=== PATIENT | female | born 1955 | race Caucasian/White ===

== ENCOUNTER 2017-05-28 17:01 | Inpatient (IN) | payer OTHER, MEDICARE ==
[~2017-05-28] VITALS: Ht 154.9 cm; Wt 53.5 kg
[~2017-05-28 17:01] MED LIST: ADAL40PEN INJ; ASPI81CH PO; ASPI81EC PO; BETA.05TO TOP; COLE625; CYCL10; CYCL10 PO; DOCSEN PO; DULO30; DULO30 PO; DULO60 PO; Duragesic TOP; ERGO50000; ERGO50000 PO; FENT25TP TOP; FENT50TP; FOLI400; HUMERA; HYDACE10B PO; HYDACE5 PO; HYDACE5325 PO; HYDACE7.5; HYOMAX; HYOS.125 SL; IBUP800; K-Dur20 MEQ PO; LORA.5 PO; MESA250ER; MESA250ER PO; METCAR500; METCAR500 PO; METCAR750 PO; MUPI2TO TOP; Norco 10-325 T1 EACH PO; Norco 5-325 Ta1 EACH PO; ONDA4; ONDA4 PO; ONDA4ODT MM; ONDA8ODT; OXYACE5T PO; POTCHL10ER PO; POTCIT10; PRED10 PO; PRED20 PO; PROM25; PROM25 PO; PROM25S PR; PROM50S; Phenergan25 M1; Prednisone20 MG PO; Protonix40 MG PO; RELISTOR12 MG/0.6 SQ; REMICADE; VENL150ER PO; VICODIN 5-3001 EACH PO; Zofran Odt4 MG PO; Zofran4 MG PO; Zofran8 MG PO; [UNRECOGNIZED DRUG - OTHER]; [UNRECOGNIZED DRUG - REMARK]
[2017-05-28] MEDS ORDERED: LATANOPROST2.5 ML LEFTEYE (17:31)
[2017-05-28] MEDS ORDERED: Hydrocodone-Ap1 EA20 PO (17:32)
[2017-05-28] MEDS ORDERED: VENL150ER PO (17:32)
[2017-05-28 18:11] LABS: BASOPHILS ABSOLUTE AUTO 0.04 K/mm3 (0.00-0.23); BASOPHILS PERCENT AUTO 1 % (0-2); Hematocrit 34.7 % (33.0-51.0); Hemoglobin 10.9 g/dL (11.5-16.0); LYMPHOCYTES ABSOLUTE AUTO 0.95 K/mm3 (0.84-5.20); LYMPHOCYTES PERCENT AUTO 11 % (21-46); MONOCYTES ABSOLUTE AUTO 0.85 K/mm3 (0.16-1.47); MONOCYTES PERCENT AUTO 10 % (4-13); Mean Corpuscular HGB 24.8 pg (26.0-34.0); Mean Corpuscular HGB Conc 31.4 g/dL (31.5-36.5); Mean Corpuscular Volume 79 fL (80-100); Mean Platelet Volume 10.6 fL (9.1-12.4); Platelet Count 374 K/mm3 (150-400); RDW Coefficient Variation 17.2 % (11.7-14.2); RDW Standard Deviation 48.6 fL (35.1-46.3); White Blood Cell Count 8.32 K/mm3 (4.00-11.30)
[2017-05-28 18:19] LABS: EOSINOPHILS ABSOLUTE AUTO 0.01 K/mm3 (0.00-0.68); EOSINOPHILS PERCENT AUTO 0 % (0-6); IMMATURE GRAN ABSOLUTE AUTO 0.06 K/mm3 (0.00-0.10); IMMATURE GRAN PERCENT AUTO 1 % (0-1); NEUTROPHILS ABSOLUTE AUTO 6.41 K/mm3 (1.96-9.15); NEUTROPHILS PERCENT AUTO 77 % (41-73)
[2017-05-28 18:38] LABS: Alanine Aminotransfer (ALT/SGP 16 U/L (12-78); Albumin, Blood 2.3 g/dL (3.4-5.0); Albumin/Globulin Ratio 0.6 (0.8-1.8); Alk Phos 157 U/L (50-136); Anion Gap 12 mmol/L (6-16); Aspartate Aminotrans (AST/SGOT 17 U/L (12-37); Bilirubin, Total 0.6 mg/dL (0.1-1.0); Blood Urea Nitrogen 15 mg/dL (8-24); Bun/Creatinine Ratio 19.6 (12.0-20.0); CO2, Blood 23 mmol/L (21-32); Calcium, Blood 7.4 mg/dL (8.5-10.1); Chloride, Blood 99 mmol/L (98-108); Creatinine, Blood 0.76 mg/dL (0.40-1.00); Globulin, Blood 3.9 g/dL (2.2-4.0); Glomerular Filtration Rate >60 (60-); Glucose, Blood 98 mg/dL (70-99); Potassium, Blood 2.4 mmol/L (3.5-5.5); Sodium, Blood 134 mmol/L (136-145); Total Protein, Blood 6.2 g/dL (6.4-8.2)
[2017-05-29 06:10] LABS: Source, Urine Clean Catch
[2017-05-29 06:14] LABS: Bilirubin, Urine Neg (Neg); Blood, Urine 1+ (Neg); Glucose Qualitative, Urine Neg (Neg); Ketones, Urine Neg (Neg); Leukocyte Esterase, Urine 1+ (Neg); Nitrite, Urine Neg (Neg); Protein, Urine 2+ (Neg); Specific Gravity, Urine 1.015 (1.003-1.022); Urobilinogen, Urine NORM (Normal)
[2017-05-29 06:23] LABS: Appearance, Urine Hazy (Clear); Color, Urine Yellow (P-Yellow)
[2017-05-29 06:25] LABS: Amorphous Light (0-Heavy); Bacteria Few /hpf; Red Blood Cells, Urine 0-2 /hpf (0-2); Squamous Epithelial Cells Mod /hpf (Few)
[2017-05-29 07:09] LABS: Hematocrit 30.7 % (33.0-51.0); Hemoglobin 9.7 g/dL (11.5-16.0); Mean Corpuscular HGB 25.4 pg (26.0-34.0); Mean Corpuscular HGB Conc 31.6 g/dL (31.5-36.5); Mean Corpuscular Volume 80 fL (80-100); Mean Platelet Volume 10.2 fL (9.1-12.4); Platelet Count 323 K/mm3 (150-400); RDW Coefficient Variation 17.5 % (11.7-14.2); RDW Standard Deviation 50.2 fL (35.1-46.3); Red Blood Cell Count 3.82 M/mm3 (3.80-5.20); White Blood Cell Count 6.06 K/mm3 (4.00-11.30)
[2017-05-29 07:27] LABS: Anion Gap 9 mmol/L (6-16); Blood Urea Nitrogen 16 mg/dL (8-24); Bun/Creatinine Ratio 17.8 (12.0-20.0); CO2, Blood 23 mmol/L (21-32); Chloride, Blood 105 mmol/L (98-108); Glomerular Filtration Rate >60 (60-); Glucose, Blood 95 mg/dL (70-99); Phosphorus, Blood 2.1 mg/dL (2.5-4.9); Potassium, Blood 3.2 mmol/L (3.5-5.5); Sodium, Blood 137 mmol/L (136-145)
[2017-05-29 07:32] LABS: BAND PERCENT MAN 33 % (0-8); BASOPHILS PERCENT MAN 0 % (0-2); EOSINOPHILS ABSOLUTE MAN 0.12 K/mm3 (0.00-0.68); EOSINOPHILS PERCENT MAN 2 % (0-6); LYMPHOCYTES PERCENT MAN 10 % (21-46); MONOCYTES ABSOLUTE MAN 0.42 K/mm3 (0.16-1.47); MONOCYTES PERCENT MAN 7 % (4-13); SEG NEUTROPHILS PERCENT MAN 48 % (41-73); TOTAL CELLS COUNTED 100
[2017-05-29 08:41] LABS: Calcium, Blood 6.4 mg/dL (8.5-10.1)
[2017-05-31 05:58] LABS: Magnesium, Blood 1.8 mg/dL (1.6-2.4)
[2017-05-31 05:59] LABS: Anion Gap 10 mmol/L (6-16); Blood Urea Nitrogen 7 mg/dL (8-24); Bun/Creatinine Ratio 11.1 (12.0-20.0); CO2, Blood 18 mmol/L (21-32); Calcium, Blood 7.2 mg/dL (8.5-10.1); Chloride, Blood 115 mmol/L (98-108); Creatinine, Blood 0.63 mg/dL (0.40-1.00); Glomerular Filtration Rate >60 (60-); Glucose, Blood 120 mg/dL (70-99); Phosphorus, Blood 1.8 mg/dL (2.5-4.9); Potassium, Blood 4.8 mmol/L (3.5-5.5); Sodium, Blood 143 mmol/L (136-145); Triglycerides 73 mg/dL (30-160)
[2017-06-01 05:50] LABS: Anion Gap 7 mmol/L (6-16); Blood Urea Nitrogen 10 mg/dL (8-24); Bun/Creatinine Ratio 12.9 (12.0-20.0); CO2, Blood 24 mmol/L (21-32); Calcium, Blood 7.8 mg/dL (8.5-10.1); Chloride, Blood 111 mmol/L (98-108); Creatinine, Blood 0.78 mg/dL (0.40-1.00); Glomerular Filtration Rate >60 (60-); Glucose, Blood 163 mg/dL (70-99); Magnesium, Blood 2.2 mg/dL (1.6-2.4); Phosphorus, Blood 1.8 mg/dL (2.5-4.9); Potassium, Blood 3.6 mmol/L (3.5-5.5); Sodium, Blood 142 mmol/L (136-145)
[2017-06-02 05:16] LABS: Anion Gap 7 mmol/L (6-16); Blood Urea Nitrogen 18 mg/dL (8-24); Bun/Creatinine Ratio 26.4 (12.0-20.0); CO2, Blood 26 mmol/L (21-32); Calcium, Blood 7.8 mg/dL (8.5-10.1); Chloride, Blood 109 mmol/L (98-108); Creatinine, Blood 0.68 mg/dL (0.40-1.00); Glomerular Filtration Rate >60 (60-); Glucose, Blood 201 mg/dL (70-99); Magnesium, Blood 2.1 mg/dL (1.6-2.4); Phosphorus, Blood 1.9 mg/dL (2.5-4.9); Potassium, Blood 3.6 mmol/L (3.5-5.5); Sodium, Blood 142 mmol/L (136-145)
[2017-06-02] MEDS ORDERED: OMEPRAZOLE MAGN20 MG PO (13:47)
[2018-04-18] MEDS ORDERED: Norco 5-325 Ta1 EACH PO (19:20)
== END 2017-06-02 17:14 | disposition home or self-care (01) | DRG 386 ==
LOC: ER 17:01 → MEDS 20:51 → ENPENDDIS 06-02 14:01 → MEDS 06-02 17:14
PROVIDERS: Family Medicine; Physician Assistant; Surgery
PROC: 0D9670Z Drainage of Stomach with Drainage Device, Via Natural or Artificial Opening (ICD-10-PCS; principal; 2017-05-28)
DX: K50.012 Crohn's disease of small intestine with intestinal obstruction (principal); E87.1 Hypo-osmolality and hyponatremia; E87.6 Hypokalemia; F41.9 Anxiety disorder, unspecified; D64.9 Anemia, unspecified; Z88.5 Allergy status to narcotic agent; Z88.8 Allergy status to other drugs, medicaments and biological substances; Z79.899 Other long term (current) drug therapy; Z87.891 Personal history of nicotine dependence
CPT/HCPCS: 36415; 74018; 74176; 74177; 80048; 80053; 80069; 81001; 82947; 83605; 83690; 83735; 84100; 84478; 85025; 87040; 87086; 93005; 93010; 96365; 96366; 96368; 96375; 96376; 99285; C9113; J0744; J0780; J1170; J1642; J1720; J2001; J2060; J2405; J3411; J3480; J7030; J7050; Q9967

== ENCOUNTER 2017-08-02 15:11 | Emergency (ER) | payer OTHER, MEDICARE ==
[~2017-08-02] VITALS: Ht 154.9 cm; Wt 52.2 kg
[~2017-08-02 15:11] MED LIST changes: +Hydrocodone-Ap1 EA20 PO; +LATANOPROST2.5 ML LEFTEYE; +OMEPRAZOLE MAGN20 MG PO
[2017-08-02] MEDS ORDERED: Percocet 10-321 EACH PO (16:24)
[2017-08-02] MEDS ORDERED: ASPI325 PO (16:24)
[2017-08-02] MEDS ORDERED: CEFD300 (16:24)
[2017-08-02] MEDS ORDERED: VICODIN HP 10-1 EACH PO (16:25)
[2017-08-02] MEDS ORDERED: Cyclobenzaprine5 MG PO (17:07)
[2018-04-18] MEDS ORDERED: Norco 5-325 Ta1 EACH PO (19:20)
== END 2017-08-02 17:15 | disposition home or self-care (01) ==
LOC: ER 15:11
DX: M54.6 Pain in thoracic spine (principal); F32.9 Major depressive disorder, single episode, unspecified; Z87.891 Personal history of nicotine dependence; Z88.8 Allergy status to other drugs, medicaments and biological substances; Z79.899 Other long term (current) drug therapy; W22.8XXA Striking against or struck by other objects, initial encounter
CPT/HCPCS: 72070; 96372; 99283; J1885

== ENCOUNTER 2017-09-26 09:53 | Day surgery (SDC) | payer OTHER, MEDICARE ==
[~2017-09-26] VITALS: Ht 154.9 cm; Wt 47.9 kg
[~2017-09-26 09:53] MED LIST changes: +ASPI325 PO; +CEFD300; +Cyclobenzaprine5 MG PO; +Percocet 10-321 EACH PO; +VICODIN HP 10-1 EACH PO
[2017-09-26] MEDS ORDERED: LORA.5 (10:18)
[2017-09-26] MEDS ORDERED: VENL150ER (10:18)
== END 2017-09-26 12:05 | disposition home or self-care (01) ==
LOC: ORSCSDS 09:53
PROVIDERS: Internal Medicine Gastroenterology
PROC: 0DBB8ZX Excision of Ileum, Via Natural or Artificial Opening Endoscopic, Diagnostic (ICD-10-PCS; principal; 2017-09-26 11:00)
DX: K50.90 Crohn's disease, unspecified, without complications (principal); K52.9 Noninfective gastroenteritis and colitis, unspecified; K63.3 Ulcer of intestine; K64.8 Other hemorrhoids; H40.9 Unspecified glaucoma; E78.5 Hyperlipidemia, unspecified; F32.9 Major depressive disorder, single episode, unspecified; Z87.891 Personal history of nicotine dependence; Z79.82 Long term (current) use of aspirin; Z79.899 Other long term (current) drug therapy
CPT/HCPCS: 88305; J1642; J7120

== ENCOUNTER 2017-11-06 16:27 | Emergency (ER) | payer OTHER, MEDICARE ==
[~2017-11-06] VITALS: Ht 154.9 cm; Wt 59.0 kg
[~2017-11-06 16:27] MED LIST changes: +LORA.5; +VENL150ER
[2017-11-06] MEDS ORDERED: PROM25 PO (17:44)
[2017-11-06] MEDS ORDERED: LOPE2C PO (17:44)
[2017-11-06 18:10] LABS: Calcium, Ionized (POC) 1.15 mmol/L (1.10-1.46); Chloride (POC) 102 mmol/L (98-108); Creatinine (POC) 0.9 mg/dL (0.6-1.0); Glucose (ISTAT POC) 97 mg/dL (70-99); Hemoglobin (POC) 11.9 g/dL (12.0-16.0); Potassium (POC) 3.2 mmol/L (3.5-5.5); Sodium (POC) 141 mmol/L (135-148); Total CO2 (POC) 27 mmol/L (21-32)
== END 2017-11-06 18:11 | disposition home or self-care (01) ==
LOC: ER 16:27
PROVIDERS: Emergency Medicine
DX: S20.419A Abrasion of unspecified back wall of thorax, initial encounter (principal); S00.81XA Abrasion of other part of head, initial encounter; S00.412A Abrasion of left ear, initial encounter; K50.90 Crohn's disease, unspecified, without complications; E87.6 Hypokalemia; F32.9 Major depressive disorder, single episode, unspecified; Z88.5 Allergy status to narcotic agent; Z88.4 Allergy status to anesthetic agent; Z79.899 Other long term (current) drug therapy; Z79.82 Long term (current) use of aspirin; Z87.891 Personal history of nicotine dependence; Z88.8 Allergy status to other drugs, medicaments and biological substances; X58.XXXA Exposure to other specified factors, initial encounter
CPT/HCPCS: 80047; 85014; 99283

== ENCOUNTER 2018-07-16 13:46 | Emergency (ER) | payer MEDICARE ==
[~2018-07-16] VITALS: Ht 154.9 cm; Wt 54.4 kg
[~2018-07-16 13:46] MED LIST changes: +LOPE2C PO
[2018-07-16 15:31] LABS: BASOPHILS ABSOLUTE AUTO 0.04 K/mm3 (0.00-0.23); BASOPHILS PERCENT AUTO 1 % (0-2); EOSINOPHILS ABSOLUTE AUTO 0.04 K/mm3 (0.00-0.68); EOSINOPHILS PERCENT AUTO 1 % (0-6); Hematocrit 32.6 % (33.0-51.0); Hemoglobin 9.6 g/dL (11.5-16.0); IMMATURE GRAN ABSOLUTE AUTO 0.02 K/mm3 (0.00-0.10); IMMATURE GRAN PERCENT AUTO 0 % (0-1); LYMPHOCYTES PERCENT AUTO 16 % (21-46); MONOCYTES ABSOLUTE AUTO 0.56 K/mm3 (0.16-1.47); MONOCYTES PERCENT AUTO 8 % (4-13); Mean Corpuscular HGB 24.7 pg (26.0-34.0); Mean Corpuscular HGB Conc 29.4 g/dL (31.5-36.5); Mean Corpuscular Volume 84 fL (80-100); Mean Platelet Volume 10.2 fL (9.1-12.4); NEUTROPHILS PERCENT AUTO 75 % (41-73); Platelet Count 464 K/mm3 (150-400); RDW Coefficient Variation 15.4 % (11.7-14.2); RDW Standard Deviation 46.7 fL (35.1-46.3); Red Blood Cell Count 3.88 M/mm3 (3.80-5.20); White Blood Cell Count 7.06 K/mm3 (4.00-11.30)
[2018-07-16 16:01] LABS: Alanine Aminotransfer (ALT/SGP 12 U/L (12-78); Albumin, Blood 2.9 g/dL (3.4-5.0); Albumin/Globulin Ratio 0.7 (0.8-1.8); Alk Phos 130 U/L (50-136); Anion Gap 8 mmol/L (6-16); Aspartate Aminotrans (AST/SGOT 6 U/L (12-37); Bilirubin, Total 0.3 mg/dL (0.1-1.0); Blood Urea Nitrogen 16 mg/dL (8-24); CO2, Blood 25 mmol/L (21-32); Calcium, Blood 8.3 mg/dL (8.5-10.1); Chloride, Blood 108 mmol/L (98-108); Creatinine, Blood 0.73 mg/dL (0.40-1.00); Globulin, Blood 4.2 g/dL (2.2-4.0); Glomerular Filtration Rate >60 (60-); Glucose, Blood 100 mg/dL (70-99); Potassium, Blood 3.1 mmol/L (3.5-5.5); Sodium, Blood 141 mmol/L (136-145); Total Protein, Blood 7.1 g/dL (6.4-8.2); Troponin I <0.015 ng/mL (0.000-0.040)
== END 2018-07-16 19:00 | disposition left against medical advice (07) ==
LOC: ER 13:46
PROVIDERS: Physician Assistant
DX: R06.02 Shortness of breath (principal); M54.9 Dorsalgia, unspecified; R07.9 Chest pain, unspecified; M25.519 Pain in unspecified shoulder; Z53.20 Procedure and treatment not carried out because of patient's decision for unspecified reasons
CPT/HCPCS: 36415; 71046; 80053; 84484; 85025; 93005; 93010; 99285-25

== ENCOUNTER 2018-10-13 18:46 | Emergency (ER) | payer MEDICARE ==
[~2018-10-13] VITALS: Ht 152.4 cm; Wt 52.2 kg
[2018-10-13] MEDS ORDERED: Monodox100 MG PO (19:45)
[2018-10-13] MEDS ORDERED: Percocet 5-3251 EACH PO (19:45)
== END 2018-10-13 19:56 | disposition home or self-care (01) ==
LOC: ER 18:46
DX: L03.312 Cellulitis of back [any part except buttock and flank] (principal); L03.211 Cellulitis of face; Z88.8 Allergy status to other drugs, medicaments and biological substances; Z88.5 Allergy status to narcotic agent; Z79.899 Other long term (current) drug therapy; Z79.82 Long term (current) use of aspirin; F32.9 Major depressive disorder, single episode, unspecified; Z87.891 Personal history of nicotine dependence
CPT/HCPCS: 99283

== ENCOUNTER 2018-10-22 07:52 | Emergency (ER) | payer MEDICARE ==
[~2018-10-22] VITALS: Ht 152.4 cm; Wt 54.4 kg
[~2018-10-22 07:52] MED LIST changes: +Monodox100 MG PO; +Percocet 5-3251 EACH PO
[2018-10-22] MEDS ORDERED: LORA.5 PO (08:13)
[2018-10-22 10:47] LABS: Alanine Aminotransfer (ALT/SGP 17 U/L (12-78); Albumin, Blood 2.8 g/dL (3.4-5.0); Albumin/Globulin Ratio 0.7 (0.8-1.8); Alk Phos 165 U/L (50-136); Anion Gap 9 mmol/L (6-16); Aspartate Aminotrans (AST/SGOT 17 U/L (12-37); Bilirubin, Total 0.2 mg/dL (0.1-1.0); Blood Urea Nitrogen 15 mg/dL (8-24); Bun/Creatinine Ratio 20.3 (12.0-20.0); CO2, Blood 24 mmol/L (21-32); Calcium, Blood 8.2 mg/dL (8.5-10.1); Chloride, Blood 108 mmol/L (98-108); Creatinine, Blood 0.74 mg/dL (0.40-1.00); Globulin, Blood 3.9 g/dL (2.2-4.0); Glomerular Filtration Rate >60 (60-); Glucose, Blood 91 mg/dL (70-99); Potassium, Blood 3.9 mmol/L (3.5-5.5); Sodium, Blood 141 mmol/L (136-145); Total Protein, Blood 6.7 g/dL (6.4-8.2)
[2018-10-22 11:00] LABS: BASOPHILS ABSOLUTE AUTO 0.07 K/mm3 (0.00-0.23); BASOPHILS PERCENT AUTO 1 % (0-2); EOSINOPHILS ABSOLUTE AUTO 0.05 K/mm3 (0.00-0.68); EOSINOPHILS PERCENT AUTO 1 % (0-6); Hematocrit 37.6 % (33.0-51.0); IMMATURE GRAN ABSOLUTE AUTO 0.04 K/mm3 (0.00-0.10); IMMATURE GRAN PERCENT AUTO 1 % (0-1); LYMPHOCYTES ABSOLUTE AUTO 1.38 K/mm3 (0.84-5.20); LYMPHOCYTES PERCENT AUTO 21 % (21-46); MONOCYTES ABSOLUTE AUTO 0.52 K/mm3 (0.16-1.47); MONOCYTES PERCENT AUTO 8 % (4-13); Mean Corpuscular HGB 22.9 pg (26.0-34.0); Mean Corpuscular HGB Conc 29.3 g/dL (31.5-36.5); Mean Corpuscular Volume 78 fL (80-100); Mean Platelet Volume 10.7 fL (9.1-12.4); NEUTROPHILS ABSOLUTE AUTO 4.61 K/mm3 (1.96-9.15); NEUTROPHILS PERCENT AUTO 69 % (41-73); Platelet Count 403 K/mm3 (150-400); RDW Coefficient Variation 19.2 % (11.7-14.2); RDW Standard Deviation 52.4 fL (35.1-46.3); White Blood Cell Count 6.67 K/mm3 (4.00-11.30)
[2018-10-22] MEDS ORDERED: Norco 10-325 T1 EACH PO (13:11)
== END 2018-10-22 13:34 | disposition home or self-care (01) ==
LOC: ER 07:52
PROVIDERS: Emergency Medicine
DX: K50.90 Crohn's disease, unspecified, without complications (principal); F32.9 Major depressive disorder, single episode, unspecified; Z87.891 Personal history of nicotine dependence; Z79.899 Other long term (current) drug therapy; Z79.82 Long term (current) use of aspirin
CPT/HCPCS: 36415; 74176; 80053; 83690; 85025; 96374; 99284-25; J1642; J3010

== ENCOUNTER 2018-11-08 11:22 | Emergency (ER) | payer MEDICARE ==
[~2018-11-08] VITALS: Ht 154.9 cm; Wt 54.4 kg
[2018-11-08] MEDS ORDERED: HYDR1TAB94 PO (14:32)
== END 2018-11-08 14:48 | disposition home or self-care (01) ==
LOC: ER 11:22
DX: M48.56XA Collapsed vertebra, not elsewhere classified, lumbar region, initial encounter for fracture (principal); F41.0 Panic disorder [episodic paroxysmal anxiety]; F32.9 Major depressive disorder, single episode, unspecified; Z88.5 Allergy status to narcotic agent; Z88.8 Allergy status to other drugs, medicaments and biological substances; Z87.891 Personal history of nicotine dependence
CPT/HCPCS: 72100; 96372; 99283-25; J1885

== ENCOUNTER 2018-11-11 12:35 | Emergency (ER) | payer MEDICARE ==
[~2018-11-11] VITALS: Ht 154.9 cm; Wt 54.4 kg
[~2018-11-11 12:35] MED LIST changes: +HYDR1TAB94 PO
[2018-11-11] MEDS ORDERED: PROM25 PO (13:42)
== END 2018-11-11 13:53 | disposition home or self-care (01) ==
LOC: ER 12:35
DX: R11.2 Nausea with vomiting, unspecified (principal); M48.56XA Collapsed vertebra, not elsewhere classified, lumbar region, initial encounter for fracture; T50.995A Adverse effect of other drugs, medicaments and biological substances, initial encounter; F32.9 Major depressive disorder, single episode, unspecified; Z88.5 Allergy status to narcotic agent; Z88.8 Allergy status to other drugs, medicaments and biological substances; Z87.891 Personal history of nicotine dependence
CPT/HCPCS: 99283

== ENCOUNTER 2018-11-27 17:53 | Observation (INO) | payer MEDICARE ==
[~2018-11-27] VITALS: Ht 154.9 cm; Wt 48.8 kg
[2018-11-27 18:32] LABS: BASOPHILS ABSOLUTE AUTO 0.08 K/mm3 (0.00-0.23); BASOPHILS PERCENT AUTO 1 % (0-2); EOSINOPHILS PERCENT AUTO 1 % (0-6); Hematocrit 30.7 % (33.0-51.0); Hemoglobin 9.1 g/dL (11.5-16.0); IMMATURE GRAN ABSOLUTE AUTO 0.04 K/mm3 (0.00-0.10); IMMATURE GRAN PERCENT AUTO 0 % (0-1); LYMPHOCYTES ABSOLUTE AUTO 1.42 K/mm3 (0.84-5.20); LYMPHOCYTES PERCENT AUTO 13 % (21-46); MONOCYTES ABSOLUTE AUTO 0.54 K/mm3 (0.16-1.47); MONOCYTES PERCENT AUTO 5 % (4-13); Mean Corpuscular HGB 23.9 pg (26.0-34.0); Mean Corpuscular HGB Conc 29.6 g/dL (31.5-36.5); Mean Corpuscular Volume 81 fL (80-100); NEUTROPHILS ABSOLUTE AUTO 8.54 K/mm3 (1.96-9.15); NEUTROPHILS PERCENT AUTO 80 % (41-73); RDW Coefficient Variation 20.2 % (11.7-14.2); RDW Standard Deviation 59.5 fL (35.1-46.3); Red Blood Cell Count 3.81 M/mm3 (3.80-5.20); White Blood Cell Count 10.72 K/mm3 (4.00-11.30)
[2018-11-27 18:41] LABS: Mean Platelet Volume 10.4 fL (9.1-12.4); Platelet Count 338 K/mm3 (150-400)
[2018-11-27 18:59] LABS: Alanine Aminotransfer (ALT/SGP 18 U/L (12-78); Albumin/Globulin Ratio 0.8 (0.8-1.8); Alk Phos 149 U/L (50-136); Anion Gap 8 mmol/L (6-16); Aspartate Aminotrans (AST/SGOT 17 U/L (12-37); Bilirubin, Total 0.6 mg/dL (0.1-1.0); Blood Urea Nitrogen 11 mg/dL (8-24); Bun/Creatinine Ratio 12.9 (12.0-20.0); CO2, Blood 22 mmol/L (21-32); Calcium, Blood 8.3 mg/dL (8.5-10.1); Chloride, Blood 111 mmol/L (98-108); Creatinine, Blood 0.85 mg/dL (0.40-1.00); Globulin, Blood 3.9 g/dL (2.2-4.0); Glomerular Filtration Rate >60 (60-); Glucose, Blood 89 mg/dL (70-99); Potassium, Blood 3.4 mmol/L (3.5-5.5); Sodium, Blood 141 mmol/L (136-145); Total Protein, Blood 6.9 g/dL (6.4-8.2)
[2018-11-27] MEDS ORDERED: CYAN500 PO (22:18)
[2018-11-27] MEDS ORDERED: ASPI81CH PO (22:18)
[2018-11-27] MEDS ORDERED: Hydrocodone-Ap1 EA23 PO (22:22)
[2018-11-28] MEDS ORDERED: ADAL40PEN (02:30)
[2018-11-28] MEDS ORDERED: NICO2 PO (03:41)
[2018-11-28 04:45] LABS: Hematocrit 29.2 % (33.0-51.0); Hemoglobin 9.2 g/dL (11.5-16.0); Mean Corpuscular HGB 24.3 pg (26.0-34.0); Mean Corpuscular HGB Conc 31.5 g/dL (31.5-36.5); Platelet Count 288 K/mm3 (150-400); RDW Coefficient Variation 19.9 % (11.7-14.2); Red Blood Cell Count 3.79 M/mm3 (3.80-5.20); White Blood Cell Count 6.82 K/mm3 (4.00-11.30)
[2018-11-28 04:48] LABS: Mean Corpuscular Volume 77 fL (80-100)
[2018-11-28 05:07] LABS: Alanine Aminotransfer (ALT/SGP 16 U/L (12-78); Albumin, Blood 2.8 g/dL (3.4-5.0); Albumin/Globulin Ratio 0.8 (0.8-1.8); Alk Phos 138 U/L (50-136); Anion Gap 6 mmol/L (6-16); Aspartate Aminotrans (AST/SGOT 14 U/L (12-37); Bilirubin, Total 0.4 mg/dL (0.1-1.0); Blood Urea Nitrogen 10 mg/dL (8-24); Bun/Creatinine Ratio 12.3 (12.0-20.0); CO2, Blood 21 mmol/L (21-32); Calcium, Blood 7.8 mg/dL (8.5-10.1); Chloride, Blood 115 mmol/L (98-108); Creatinine, Blood 0.81 mg/dL (0.40-1.00); Globulin, Blood 3.3 g/dL (2.2-4.0); Glomerular Filtration Rate >60 (60-); Glucose, Blood 81 mg/dL (70-99); Potassium, Blood 3.7 mmol/L (3.5-5.5); Sodium, Blood 142 mmol/L (136-145); Total Protein, Blood 6.1 g/dL (6.4-8.2)
[2018-11-28 06:12] LABS: Adenovirus Not Detected (NOT DETECT); Bordetella pertussis Not Detected (NOT DETECT); Chlamydophila pneumoniae Not Detected (NOT DETECT); Coronavirus 229E Not Detected (NOT DETECT); Coronavirus HKU1 Not Detected (NOT DETECT); Coronavirus NL63 Not Detected (NOT DETECT); Coronavirus OC43 Not Detected (NOT DETECT); Human Metapneumovirus Not Detected (NOT DETECT); Human Rhinovirus/Enterovirus Not Detected (NOT DETECT); Influenza A Not Detected (NOT DETECT); Influenza A/2009-H1 Not Detected (NOT DETECT); Influenza A/H1 Not Detected (NOT DETECT); Influenza A/H3 Not Detected (NOT DETECT); Influenza B Not Detected (NOT DETECT); Mycoplasma pneumoniae Not Detected (NOT DETECT); Parainfluenza Virus 1 Not Detected (NOT DETECT); Parainfluenza Virus 2 Not Detected (NOT DETECT); Parainfluenza Virus 3 Not Detected (NOT DETECT); Parainfluenza Virus 4 Not Detected (NOT DETECT); Respiratory Syncytial Virus Not Detected (NOT DETECT)
--- NOTE | 2018-11-28 07:17 | NUR ---
SHIFT SUMMARY PT ARRIVED TO ROOM APPROX 0100. C/O PAIN IN BACK,ABD, LEGS AND HEAD AND MEDICATED PER EMAR. SHE WAS ABLE TO SLEEP ON AND OFF T/O NIGHT. SBA TO INDEPENDENT TO BA. DR ODEN CALLED ABOUT 0615 AND SAID HE WAS GOING TO DISCHARGE HER SINCE HER SCAN SHOWED NO PE. NOTIFIED PT AND SHE WAS HAPPY TO HEAR.
[2018-11-28] MEDS ORDERED: AZIT500 PO (07:40)
--- NOTE | 2018-11-28 09:34 | NUR ---
PATIENT DISCHARGE: PATIENT DISCHARGED TO HOME THIS SHIFT. MEDICATION RECONCILIATION COMPLETED; MED LIST FAXED TO [facility]. DISCHARGE EDUCATION COMPLETED WITH PATIENT. PATIENT TRANSPORTED TO EXIT BY [facility] WITH WHEELCHAIR AT 0900. PATIENT DEPARTED [facility]IA [facility].
== END 2018-11-28 09:34 | disposition home or self-care (01) ==
LOC: ER 17:53 → MEDS 22:53 → ENPENDDIS 11-28 08:30 → MEDS 11-28 09:34
PROVIDERS: Emergency Medicine; ADMIT Internal Medicine
DX: R07.9 Chest pain, unspecified (principal); R50.9 Fever, unspecified; R06.02 Shortness of breath; R79.1 Abnormal coagulation profile; G89.29 Other chronic pain; F41.9 Anxiety disorder, unspecified; F41.0 Panic disorder [episodic paroxysmal anxiety]; F32.9 Major depressive disorder, single episode, unspecified; E87.6 Hypokalemia; Z88.5 Allergy status to narcotic agent; Z88.8 Allergy status to other drugs, medicaments and biological substances; Z98.890 Other specified postprocedural states; Z79.899 Other long term (current) drug therapy; Z79.82 Long term (current) use of aspirin
CPT/HCPCS: 0099U; 36415; 71046; 71260; 80053; 84484; 85025; 85027; 85379; 93005; 93010; 96361; 96372; 96374; 96375; 96376; 99285-25; A9270; G0378; J0456; J1642; J1650; J1885; J2060; J3010; J7030; J7050; Q9967

== ENCOUNTER 2018-12-16 14:27 | Observation (INO) | payer MEDICARE ==
[~2018-12-16] VITALS: Ht 154.9 cm; Wt 45.4 kg
[~2018-12-16 14:27] MED LIST changes: +ADAL40PEN; +AZIT500 PO; +CYAN500 PO; +Hydrocodone-Ap1 EA23 PO; +NICO2 PO
[2018-12-16 14:44] LABS: Source, Urine Clean Catch
[2018-12-16 14:54] LABS: Bilirubin, Urine Neg (Neg); Blood, Urine 2+ (Neg); Glucose Qualitative, Urine Neg (Neg); Ketones, Urine Neg (Neg); Leukocyte Esterase, Urine 3+ (Neg); Nitrite, Urine Neg (Neg); Protein, Urine 2+ (Neg); Urobilinogen, Urine NORM (Normal)
[2018-12-16 15:20] LABS: Appearance, Urine Clear (Clear); Color, Urine Pale Yellow (P-Yellow)
[2018-12-16 15:22] LABS: Bacteria Rare /hpf; Calcium Oxalate Crystals Mod /hpf; Squamous Epithelial Cells Few /hpf (Few)
[2018-12-16 15:37] LABS: U Amphetamine Screen Not Detected; U Barbituate Screen Not Detected; U Benzodiazapine Screen Not Detected; U Buprenorphine Screen Not Detected; U Cannabinoids Screen Not Detected; U Cocaine Screen Not Detected; U Methadone Screen Not Detected; U Methamphetamine Screen Not Detected; U Opiates Screen Not Detected; U Oxycodone Screen Not Detected; U Phencyclidine Screen Not Detected; U Propoxyphene Screen Not Detected
[2018-12-16 15:44] LABS: BASOPHILS ABSOLUTE AUTO 0.06 K/mm3 (0.00-0.23); BASOPHILS PERCENT AUTO 1 % (0-2); EOSINOPHILS ABSOLUTE AUTO 0.07 K/mm3 (0.00-0.68); EOSINOPHILS PERCENT AUTO 1 % (0-6); Hematocrit 32.9 % (33.0-51.0); Hemoglobin 9.8 g/dL (11.5-16.0); IMMATURE GRAN ABSOLUTE AUTO 0.02 K/mm3 (0.00-0.10); IMMATURE GRAN PERCENT AUTO 0 % (0-1); LYMPHOCYTES ABSOLUTE AUTO 1.33 K/mm3 (0.84-5.20); LYMPHOCYTES PERCENT AUTO 17 % (21-46); MONOCYTES ABSOLUTE AUTO 0.67 K/mm3 (0.16-1.47); MONOCYTES PERCENT AUTO 9 % (4-13); Mean Corpuscular HGB 23.1 pg (26.0-34.0); Mean Corpuscular HGB Conc 29.8 g/dL (31.5-36.5); Mean Corpuscular Volume 78 fL (80-100); Mean Platelet Volume 10.1 fL (9.1-12.4); NEUTROPHILS ABSOLUTE AUTO 5.72 K/mm3 (1.96-9.15); NEUTROPHILS PERCENT AUTO 73 % (41-73); Platelet Count 375 K/mm3 (150-400); RDW Coefficient Variation 17.9 % (11.7-14.2); RDW Standard Deviation 50.4 fL (35.1-46.3); Red Blood Cell Count 4.24 M/mm3 (3.80-5.20); White Blood Cell Count 7.87 K/mm3 (4.00-11.30)
[2018-12-16 16:14] LABS: Alanine Aminotransfer (ALT/SGP 14 U/L (12-78); Albumin/Globulin Ratio 0.7 (0.8-1.8); Alk Phos 152 U/L (50-136); Anion Gap 8 mmol/L (6-16); Aspartate Aminotrans (AST/SGOT 6 U/L (12-37); Bilirubin, Total 0.2 mg/dL (0.1-1.0); Blood Urea Nitrogen 24 mg/dL (8-24); Bun/Creatinine Ratio 29.9 (12.0-20.0); CO2, Blood 27 mmol/L (21-32); Calcium, Blood 8.7 mg/dL (8.5-10.1); Chloride, Blood 104 mmol/L (98-108); Ethanol (Alcohol), Blood, Med <3 mg/dL; Globulin, Blood 4.2 g/dL (2.2-4.0); Glomerular Filtration Rate >60 (60-); Glucose, Blood 90 mg/dL (70-99); Potassium, Blood 3.5 mmol/L (3.5-5.5); Sodium, Blood 139 mmol/L (136-145); Total Protein, Blood 7.2 g/dL (6.4-8.2)
[2018-12-16 16:21] LABS: Acetaminophen, Random <2.0 ug/mL (10.0-30.0)
[2018-12-17] MEDS ORDERED: Keflex500 MG PO (15:42)
[2018-12-17] MEDS ORDERED: Ativan0.5 MG PO (15:42)
== END 2018-12-17 16:27 | disposition home or self-care (01) ==
LOC: ER 14:27 → EOR 14:28
PROVIDERS: ADMIT Emergency Medicine
DX: F41.9 Anxiety disorder, unspecified (principal); F32.9 Major depressive disorder, single episode, unspecified; N39.0 Urinary tract infection, site not specified; D64.9 Anemia, unspecified; Z88.8 Allergy status to other drugs, medicaments and biological substances; Z88.5 Allergy status to narcotic agent; Z79.899 Other long term (current) drug therapy
CPT/HCPCS: 36415; 80053; 81001; 84443; 85025; 87077; 87086; 87186; 99285; G0378; G0480; Q3014

== ENCOUNTER 2020-02-11 15:30 | Emergency (ER) | payer MEDICARE, OTHER ==
[~2020-02-11] VITALS: Ht 154.9 cm; Wt 49.9 kg
[~2020-02-11 15:30] MED LIST changes: +Ativan0.5 MG PO; +BENZ100A PO; +COMPAZINE10 MG PO; +IRON18 MG PO; +Keflex500 MG PO; +Tamiflu30 MG PO; +Vitamin B-121000 MCG PO
[2020-02-11 16:57] LABS: BASOPHILS ABSOLUTE AUTO 0.05 K/mm3 (0.00-0.23); BASOPHILS PERCENT AUTO 1 % (0-2); EOSINOPHILS ABSOLUTE AUTO 0.04 K/mm3 (0.00-0.68); EOSINOPHILS PERCENT AUTO 1 % (0-6); Hematocrit 31.9 % (33.0-51.0); Hemoglobin 9.5 g/dL (11.5-16.0); IMMATURE GRAN ABSOLUTE AUTO 0.01 K/mm3 (0.00-0.10); IMMATURE GRAN PERCENT AUTO 0 % (0-1); LYMPHOCYTES ABSOLUTE AUTO 1.16 K/mm3 (0.84-5.20); LYMPHOCYTES PERCENT AUTO 14 % (21-46); MONOCYTES ABSOLUTE AUTO 0.76 K/mm3 (0.16-1.47); MONOCYTES PERCENT AUTO 9 % (4-13); Mean Corpuscular HGB 21.8 pg (26.0-34.0); Mean Corpuscular HGB Conc 29.8 g/dL (31.5-36.5); Mean Corpuscular Volume 73 fL (80-100); Mean Platelet Volume 10.2 fL (9.1-12.4); NEUTROPHILS ABSOLUTE AUTO 6.36 K/mm3 (1.96-9.15); NEUTROPHILS PERCENT AUTO 76 % (41-73); Platelet Count 333 K/mm3 (150-400); RDW Coefficient Variation 16.9 % (11.7-14.2); RDW Standard Deviation 44.8 fL (35.1-46.3); Red Blood Cell Count 4.36 M/mm3 (3.80-5.20); White Blood Cell Count 8.38 K/mm3 (4.00-11.30)
[2020-02-11 17:18] LABS: Alanine Aminotransfer (ALT/SGP 21 U/L (12-78); Albumin, Blood 3.1 g/dL (3.4-5.0); Albumin/Globulin Ratio 0.8 (0.8-1.8); Alk Phos 100 U/L (50-136); Anion Gap 9 mmol/L (6-16); Aspartate Aminotrans (AST/SGOT 17 U/L (12-37); Bilirubin, Total 0.6 mg/dL (0.1-1.0); Blood Urea Nitrogen 10 mg/dL (8-24); Bun/Creatinine Ratio 10.4 (12.0-20.0); CO2, Blood 28 mmol/L (21-32); Calcium, Blood 8.6 mg/dL (8.5-10.1); Chloride, Blood 104 mmol/L (98-108); Creatinine, Blood 0.96 mg/dL (0.40-1.00); Globulin, Blood 3.8 g/dL (2.2-4.0); Glomerular Filtration Rate >60 (60-); Glucose, Blood 85 mg/dL (70-99); Potassium, Blood 2.5 mmol/L (3.5-5.5); Sodium, Blood 141 mmol/L (136-145); Total Protein, Blood 6.9 g/dL (6.4-8.2)
[2020-02-11] MEDS ORDERED: AMOCLA875 PO (18:21)
[2020-02-11] MEDS ORDERED: K-Dur20 MEQ PO (18:21)
[2020-02-11] MEDS ORDERED: Norco 5-325 Ta1 EACH PO (18:28)
== END 2020-02-11 19:10 | disposition home or self-care (01) ==
LOC: ER 15:30
PROVIDERS: Physician Assistant
DX: J32.9 Chronic sinusitis, unspecified (principal); K50.90 Crohn's disease, unspecified, without complications; E87.6 Hypokalemia; F32.9 Major depressive disorder, single episode, unspecified; Z88.8 Allergy status to other drugs, medicaments and biological substances; Z88.5 Allergy status to narcotic agent; Z79.52 Long term (current) use of systemic steroids; Z79.899 Other long term (current) drug therapy; Z87.891 Personal history of nicotine dependence; Z87.19 Personal history of other diseases of the digestive system
CPT/HCPCS: 36415; 71045; 80053; 85025; 99284-25; A9270-GY

== ENCOUNTER 2020-02-16 11:50 | Emergency (ER) | payer MEDICARE, OTHER ==
[~2020-02-16] VITALS: Ht 154.9 cm; Wt 49.9 kg
[~2020-02-16 11:50] MED LIST changes: +AMOCLA875 PO
[2020-02-16] MEDS ORDERED: ALBU90OI6 (12:02)
[2020-02-16 14:21] LABS: BASOPHILS ABSOLUTE AUTO 0.04 K/mm3 (0.00-0.23); BASOPHILS PERCENT AUTO 0 % (0-2); EOSINOPHILS ABSOLUTE AUTO 0.01 K/mm3 (0.00-0.68); EOSINOPHILS PERCENT AUTO 0 % (0-6); Hematocrit 34.7 % (33.0-51.0); Hemoglobin 10.2 g/dL (11.5-16.0); IMMATURE GRAN ABSOLUTE AUTO 0.03 K/mm3 (0.00-0.10); IMMATURE GRAN PERCENT AUTO 0 % (0-1); LYMPHOCYTES PERCENT AUTO 9 % (21-46); MONOCYTES ABSOLUTE AUTO 0.77 K/mm3 (0.16-1.47); MONOCYTES PERCENT AUTO 8 % (4-13); Mean Corpuscular HGB 21.7 pg (26.0-34.0); Mean Corpuscular HGB Conc 29.4 g/dL (31.5-36.5); Mean Corpuscular Volume 74 fL (80-100); Mean Platelet Volume 10.7 fL (9.1-12.4); NEUTROPHILS ABSOLUTE AUTO 7.93 K/mm3 (1.96-9.15); NEUTROPHILS PERCENT AUTO 82 % (41-73); Platelet Count 258 K/mm3 (150-400); RDW Coefficient Variation 17.7 % (11.7-14.2); RDW Standard Deviation 46.1 fL (35.1-46.3); White Blood Cell Count 9.68 K/mm3 (4.00-11.30)
[2020-02-16 14:36] LABS: Alanine Aminotransfer (ALT/SGP 19 U/L (12-78); Albumin/Globulin Ratio 0.7 (0.8-1.8); Alk Phos 121 U/L (50-136); Anion Gap 6 mmol/L (6-16); Aspartate Aminotrans (AST/SGOT 18 U/L (12-37); Bilirubin, Total 0.6 mg/dL (0.1-1.0); Blood Urea Nitrogen 10 mg/dL (8-24); Bun/Creatinine Ratio 11.9 (12.0-20.0); CO2, Blood 24 mmol/L (21-32); Calcium, Blood 8.6 mg/dL (8.5-10.1); Chloride, Blood 104 mmol/L (98-108); Creatinine, Blood 0.84 mg/dL (0.40-1.00); Globulin, Blood 4.1 g/dL (2.2-4.0); Glomerular Filtration Rate >60 (60-); Glucose, Blood 87 mg/dL (70-99); Potassium, Blood 4.4 mmol/L (3.5-5.5); Sodium, Blood 134 mmol/L (136-145); Total Protein, Blood 7.1 g/dL (6.4-8.2)
[2020-02-16 15:46] LABS: Source, Urine Clean Catch
[2020-02-16] MEDS ORDERED: AMOCLA875 PO (16:07)
[2020-02-16] MEDS ORDERED: Norco 5-325 Ta1 EACH PO (16:07)
[2020-02-16 16:08] LABS: Appearance, Urine Hazy (Clear); Bilirubin, Urine Neg (Neg); Blood, Urine 5+ (Neg); Color, Urine Yellow (P-Yellow); Glucose Qualitative, Urine Neg (Neg); Ketones, Urine 1+ (Neg); Leukocyte Esterase, Urine 3+ (Neg); Nitrite, Urine Neg (Neg); Protein, Urine 2+ (Neg); Urobilinogen, Urine NORM (Normal)
[2020-02-16 16:21] LABS: Mucus Light (0-Heavy)
[2020-02-16 16:22] LABS: Red Blood Cells, Urine 25-50 /hpf (0-2); Squamous Epithelial Cells Few /hpf (Few)
[2020-02-16 16:23] LABS: Amorphous Light (0-Heavy); Bacteria Few /hpf
== END 2020-02-16 16:50 | disposition home or self-care (01) ==
LOC: ER 11:50
PROVIDERS: Emergency Medicine
DX: J32.9 Chronic sinusitis, unspecified (principal); G89.29 Other chronic pain; R10.84 Generalized abdominal pain; F32.9 Major depressive disorder, single episode, unspecified; Z88.8 Allergy status to other drugs, medicaments and biological substances; Z88.5 Allergy status to narcotic agent; Z79.899 Other long term (current) drug therapy
CPT/HCPCS: 70450; 71046; 80053; 81001; 83690; 85025; 87086; 96374; 96375; 99284-25; A9270-GY; J1885; J3010; J7030

== ENCOUNTER 2020-02-22 05:17 | Emergency (ER) | payer MEDICARE ==
[~2020-02-22] VITALS: Ht 154.9 cm; Wt 49.9 kg
[~2020-02-22 05:17] MED LIST changes: +ALBU90OI6
[2020-02-22 06:05] LABS: Calcium, Ionized (POC) 1.04 mmol/L (1.10-1.46); Chloride (POC) 107 mmol/L (98-108); Creatinine (POC) 0.7 mg/dL (0.6-1.0); Glucose (ISTAT POC) 92 mg/dL (70-99); Hemoglobin (POC) 11.6 g/dL (12.0-16.0); Potassium (POC) 3.8 mmol/L (3.5-5.5); Sodium (POC) 140 mmol/L (135-148); Total CO2 (POC) 21 mmol/L (21-32)
== END 2020-02-22 07:10 | disposition home or self-care (01) ==
LOC: ER 05:17
PROVIDERS: Emergency Medicine
DX: R07.9 Chest pain, unspecified (principal); M54.6 Pain in thoracic spine; M54.5 Low back pain; R51.9 Headache, unspecified; G89.29 Other chronic pain; F32.9 Major depressive disorder, single episode, unspecified; K50.90 Crohn's disease, unspecified, without complications; D50.9 Iron deficiency anemia, unspecified; Z88.8 Allergy status to other drugs, medicaments and biological substances; Z88.5 Allergy status to narcotic agent; Z79.899 Other long term (current) drug therapy; Z87.891 Personal history of nicotine dependence
CPT/HCPCS: 80047; 85014; 96372; 99283; J1885

== ENCOUNTER 2020-07-18 19:54 | Inpatient (IN) | payer MEDICARE ==
[~2020-07-18] VITALS: Ht 152.4 cm; Wt 49.9 kg
[2020-07-18 21:16] LABS: Alanine Aminotransfer (ALT/SGP 18 U/L (12-78); Albumin, Blood 2.9 g/dL (3.4-5.0); Albumin/Globulin Ratio 0.6 (0.8-1.8); Alk Phos 140 U/L (50-136); Anion Gap 8 mmol/L (6-16); Aspartate Aminotrans (AST/SGOT 28 U/L (12-37); Bilirubin, Total 0.2 mg/dL (0.1-1.0); Blood Urea Nitrogen 16 mg/dL (8-24); Bun/Creatinine Ratio 21.8 (12.0-20.0); CO2, Blood 24 mmol/L (21-32); Calcium, Blood 8.6 mg/dL (8.5-10.1); Chloride, Blood 109 mmol/L (98-108); Creatinine, Blood 0.73 mg/dL (0.40-1.00); Globulin, Blood 4.6 g/dL (2.2-4.0); Glomerular Filtration Rate >60 (60-); Glucose, Blood 91 mg/dL (70-99); Potassium, Blood 3.4 mmol/L (3.5-5.5); Sodium, Blood 141 mmol/L (136-145); Total Protein, Blood 7.5 g/dL (6.4-8.2); Troponin I <0.015 ng/mL (0.000-0.040)
[2020-07-18 21:38] LABS: BASOPHILS ABSOLUTE AUTO 0.06 K/mm3 (0.00-0.23); BASOPHILS PERCENT AUTO 1 % (0-2); EOSINOPHILS ABSOLUTE AUTO 0.09 K/mm3 (0.00-0.68); EOSINOPHILS PERCENT AUTO 1 % (0-6); Hematocrit 30.8 % (33.0-51.0); IMMATURE GRAN ABSOLUTE AUTO 0.03 K/mm3 (0.00-0.10); IMMATURE GRAN PERCENT AUTO 0 % (0-1); LYMPHOCYTES ABSOLUTE AUTO 0.95 K/mm3 (0.84-5.20); LYMPHOCYTES PERCENT AUTO 11 % (21-46); MONOCYTES PERCENT AUTO 8 % (4-13); Mean Corpuscular HGB 20.3 pg (26.0-34.0); Mean Corpuscular HGB Conc 29.2 g/dL (31.5-36.5); Mean Corpuscular Volume 70 fL (80-100); NEUTROPHILS ABSOLUTE AUTO 6.64 K/mm3 (1.96-9.15); NEUTROPHILS PERCENT AUTO 78 % (41-73); Red Blood Cell Count 4.43 M/mm3 (3.80-5.20); White Blood Cell Count 8.47 K/mm3 (4.00-11.30)
[2020-07-18 21:41] LABS: Mean Platelet Volume 10.8 fL (9.1-12.4); Platelet Count 256 K/mm3 (150-400)
[2020-07-18 21:52] LABS: Influenza A, PCR NEGATIVE (NEGATIVE); Influenza B, PCR NEGATIVE (NEGATIVE); Resp Syncytial Virus, PCR NEGATIVE (NEGATIVE); SARS-Cov-2 (COVID-19) PCR, MMC NEGATIVE (NEGATIVE)
[2020-07-19 00:54] LABS: Source, Urine Voided
[2020-07-19 01:01] LABS: Bilirubin, Urine Neg (Neg); Blood, Urine 3+ (Neg); Glucose Qualitative, Urine Neg (Neg); Ketones, Urine Neg (Neg); Leukocyte Esterase, Urine 2+ (Neg); Nitrite, Urine Neg (Neg); Protein, Urine 2+ (Neg); Specific Gravity, Urine 1.015 (1.003-1.022); Urobilinogen, Urine NORM (Normal)
[2020-07-19 01:02] LABS: Appearance, Urine Clear (Clear); Color, Urine Yellow (P-Yellow)
[2020-07-19 01:08] LABS: Bacteria Few /hpf; Squamous Epithelial Cells Few /hpf (Few); White Blood Cells, Urine 50-100 /hpf (0-5)
[2020-07-19] MEDS ORDERED: DORZOPSO (07:24)
[2020-07-19] MEDS ORDERED: BRIMONIDINE TART5 M2 LEFTEYE (07:24)
--- NOTE | 2020-07-19 07:29 | NUR ---
Patient arrived from ER A&OX3-4, and very painful right upper quadrant. After IV access obtained, call placed to MD for different pain med as the fentanyl she was given in ER was wearing off after a brief time. Order received and given for 0.5mg dilaudid which allowed the patient to relax and rest comfortably the rest of the night. Patient requesting we call Dr. Aquino at [place] to obtain a current medication list.
[2020-07-19] MEDS ORDERED: DORZOPSO BOTHEYES (08:07)
[2020-07-19] MEDS ORDERED: LATA.005SO BOTHEYES (08:08)
[2020-07-19 10:50] LABS: BASOPHILS ABSOLUTE AUTO 0.03 K/mm3 (0.00-0.23); BASOPHILS PERCENT AUTO 1 % (0-2); EOSINOPHILS ABSOLUTE AUTO 0.02 K/mm3 (0.00-0.68); EOSINOPHILS PERCENT AUTO 0 % (0-6); Hematocrit 34.1 % (33.0-51.0); Hemoglobin 10.1 g/dL (11.5-16.0); IMMATURE GRAN ABSOLUTE AUTO 0.02 K/mm3 (0.00-0.10); IMMATURE GRAN PERCENT AUTO 0 % (0-1); LYMPHOCYTES ABSOLUTE AUTO 0.65 K/mm3 (0.84-5.20); LYMPHOCYTES PERCENT AUTO 13 % (21-46); MONOCYTES ABSOLUTE AUTO 0.25 K/mm3 (0.16-1.47); MONOCYTES PERCENT AUTO 5 % (4-13); Mean Corpuscular HGB 20.1 pg (26.0-34.0); Mean Corpuscular HGB Conc 29.6 g/dL (31.5-36.5); Mean Corpuscular Volume 68 fL (80-100); NEUTROPHILS ABSOLUTE AUTO 4.01 K/mm3 (1.96-9.15); NEUTROPHILS PERCENT AUTO 81 % (41-73); RDW Standard Deviation 43.5 fL (35.1-46.3); Red Blood Cell Count 5.03 M/mm3 (3.80-5.20); White Blood Cell Count 4.98 K/mm3 (4.00-11.30)
[2020-07-19 10:52] LABS: Mean Platelet Volume 10.2 fL (9.1-12.4)
[2020-07-19 11:10] LABS: Alanine Aminotransfer (ALT/SGP 15 U/L (12-78); Albumin, Blood 2.7 g/dL (3.4-5.0); Albumin/Globulin Ratio 0.6 (0.8-1.8); Alk Phos 126 U/L (50-136); Anion Gap 7 mmol/L (6-16); Aspartate Aminotrans (AST/SGOT 24 U/L (12-37); Bilirubin, Total 0.3 mg/dL (0.1-1.0); Blood Urea Nitrogen 12 mg/dL (8-24); C-REACTIVE PROTEIN, EXT RANGE 0.561 mg/dL (0.000-0.300); CO2, Blood 24 mmol/L (21-32); Calcium, Blood 8.1 mg/dL (8.5-10.1); Chloride, Blood 109 mmol/L (98-108); Globulin, Blood 4.3 g/dL (2.2-4.0); Glomerular Filtration Rate >60 (60-); Glucose, Blood 93 mg/dL (70-99); Magnesium, Blood 1.9 mg/dL (1.6-2.4); Phosphorus, Blood 3.7 mg/dL (2.5-4.9); Potassium, Blood 3.7 mmol/L (3.5-5.5); Sodium, Blood 140 mmol/L (136-145)
[2020-07-19 11:38] LABS: Platelet Count 203 K/mm3 (150-400)
--- NOTE | 2020-07-19 16:15 | NUR ---
SHIFT SUMMARY- PT A/OX3, ASNWERS QUESTIONS APROPRIATELY BUT VERY FORGETFUL. PT PLEASANT AND COOPERATIVE. PT UP INDEP IN ROOM, KYPHOSIS TO SPINE. PT MEDICATED X1 FOR RUQ PAIN. ABD TENDER AND MODERATELY DISTENDED. LS CLEAR, ON RA. PT REPORTS CHRONIC DRY COUGH, PT ALSO REPORTS CHRONIC CONGESTION. HOME CLARITIN ORDERED. PT ANXIOUS AT TIMES, PRN XANAX ORDERED. TELE SR AT 62. 1+BLE EDEMA. PT ON CLEAR LIQUID DIET, OK TO ADVANCE IF PT TOLERATES HOWEVER PT FELT NAUSEOUS WITH CLEAR LIQUID LUNCH. PT STARTED ON CLINIMIX. MEDIPORT ACCESSED, MEDIPORT DOES NOT DRAW BUT FLUSHES WELL. CATHFLOW ORDERED. GI CONSULTED AND PLAN FOR OUTPATIENT COLONOSCOPY PER DR QUIROZ. NO BLOODY STOOLS NOTED THIS SHIFT. PT NOTED TO HAVE KIDNEY STONE ON CT SCAN, NO OBVIOUS BLOON NOTED IN URINE, PT STARTED ON FLOMAX. NO OTHER ACUTE CHANGES THIS SHIFT.
[2020-07-19] MEDS ORDERED: LORA10ER PO (17:17)
--- NOTE | 2020-07-19 17:29 | NUR ---
PT NEIGHBOR/FRIEND IN TO SEE PT, HE REPORTS PT IS CONFUSED AT BASELINE AND ASKS THE SAME QUESTIONS FREQUENTLY SHE HAS DONE TODAY. HE REPORTS THIS IS HER BASELINE. PT SISTER IN LAW RIANA FROM [place], [place] CALLED AND REPORTED SHE WAS CONCERNED ABOUT PT LIVING ALONE WITH HER CONFUSION AND FEELS THOUGH PT SHOULD NOT BE LIVING ALONE. WILL PLACE A SOCIAL SERVICE CONSULT.
--- NOTE | 2020-07-19 18:05 | NUR ---
PT VERY ANXIOUS ABOUT HOME EYE DROPS, EYE DROPS VERIFIED WITH [facility] AND ORDERED. HOME MEDICATIONS SENT TO PHARMACY.
--- NOTE | 2020-07-20 07:17 | NUR ---
Patient slept through the night waking only to use bathroom. No complaints of discomfort. Labs were drawn from right chest mediport after 30 minutes Alteplase dwell in port. No further difficulty with port. Patient coughed minimally during sleep. 3 nicotine gums were requested and given
--- NOTE | 2020-07-20 11:56 | NUR ---
PT COMPLAINTS OF BEING CONGESTED. SHE REPORTS IT FEELS THOUGH IT IS STUCK IN HER SINUSES. SPOKE WITH DR GARCIAS AND FLONASE AND MUCINEX ORDERED.
--- NOTE | 2020-07-20 16:59 | NUR ---
SHIFT SUMMARY- PT A/OX, ANSWERS QUESTIONS APROPRIATELY BUT PT VERY FORGETFUL AND NEEDS FREQUENT REMINDERS. PT MEDICATED X1 THIS AM WITH FENTANYL FOR RUQ AND RIGHT MID BACK PAIN, PT REPORTED INCREASED PAIN WITH AMBULATION AND NO IMPROVEMENT WITH FENTANYL, PAIN MEDICATION CHANGED TO DILAUDID HOWEVER PT HAS DENIED NEED FOR MEDS THIS AFTERNOON. PT CONT TO REPORT PAIN BUT IMPROVED FROM THIS AM. LS CLEAR, ON RA. PT WITH WEAK COUGH WITH SINUS DRAINAGE, PT CONTINUOUSLY REPORTS FEELING CONGESTED. MEDS STARTED FOR THIS. TELE SR AT 73, TELE DC'D TODAY. PT TOLERATING FULL LIQUID DIET. URINE EVARISTO IN COLOR. MEDIPORT TO [facility] ACCESSEDD WITH [employer] RUNNING, DRAWS WELL. PLAN FOR U/S TOMORROW WELL COGNITION EVAL. PT UP INDEP TO BATHROOM AND IN HALLS. NO OTHER ACUTE CHANGES THIS SHIFT.
[2020-07-21 05:42] LABS: BASOPHILS ABSOLUTE AUTO 0.01 K/mm3 (0.00-0.23); BASOPHILS PERCENT AUTO 0 % (0-2); EOSINOPHILS PERCENT AUTO 0 % (0-6); Hematocrit 32.2 % (33.0-51.0); Hemoglobin 9.5 g/dL (11.5-16.0); IMMATURE GRAN ABSOLUTE AUTO 0.03 K/mm3 (0.00-0.10); IMMATURE GRAN PERCENT AUTO 0 % (0-1); LYMPHOCYTES ABSOLUTE AUTO 0.75 K/mm3 (0.84-5.20); LYMPHOCYTES PERCENT AUTO 9 % (21-46); MONOCYTES ABSOLUTE AUTO 0.31 K/mm3 (0.16-1.47); MONOCYTES PERCENT AUTO 4 % (4-13); Mean Corpuscular HGB 20.3 pg (26.0-34.0); Mean Corpuscular HGB Conc 29.5 g/dL (31.5-36.5); Mean Corpuscular Volume 69 fL (80-100); Mean Platelet Volume 9.9 fL (9.1-12.4); NEUTROPHILS ABSOLUTE AUTO 7.36 K/mm3 (1.96-9.15); NEUTROPHILS PERCENT AUTO 87 % (41-73); Platelet Count 475 K/mm3 (150-400); RDW Coefficient Variation 18.3 % (11.7-14.2); RDW Standard Deviation 44.7 fL (35.1-46.3); Red Blood Cell Count 4.68 M/mm3 (3.80-5.20); White Blood Cell Count 8.46 K/mm3 (4.00-11.30)
[2020-07-21 06:05] LABS: Alanine Aminotransfer (ALT/SGP 16 U/L (12-78); Albumin, Blood 2.7 g/dL (3.4-5.0); Albumin/Globulin Ratio 0.6 (0.8-1.8); Alk Phos 112 U/L (50-136); Anion Gap 6 mmol/L (6-16); Aspartate Aminotrans (AST/SGOT 13 U/L (12-37); Bilirubin, Total 0.4 mg/dL (0.1-1.0); Blood Urea Nitrogen 15 mg/dL (8-24); Bun/Creatinine Ratio 22.9 (12.0-20.0); C-REACTIVE PROTEIN, EXT RANGE <0.290 mg/dL (0.000-0.300); CO2, Blood 29 mmol/L (21-32); Calcium, Blood 8.5 mg/dL (8.5-10.1); Chloride, Blood 109 mmol/L (98-108); Creatinine, Blood 0.66 mg/dL (0.40-1.00); Globulin, Blood 4.2 g/dL (2.2-4.0); Glomerular Filtration Rate >60 (60-); Glucose, Blood 150 mg/dL (70-99); Potassium, Blood 3.2 mmol/L (3.5-5.5); Sodium, Blood 144 mmol/L (136-145); Total Protein, Blood 6.9 g/dL (6.4-8.2)
--- NOTE | 2020-07-21 06:15 | NUR ---
EDWIN HAD SEVERE PANIC ATTACK IN EVENING PREVIOUSLY NOTED. mEDICATIONS GIVEN FOR RELIEF PLUS ONE ADDITIONAL PO XANAX JUST AFTER MIDNIGHT ALLOWED PATIENT TO REST THROUGH THE REST OF THE NIGHT. wHEN SHE WOKE IN THE MORNING, SHE EXPRESSED HER THANKS FOR CONVINCING HER TO STAY. sHE LOOKED AT THE cLINIMIX BEHIND HER WELL THE iv ANTIBIOTICS NEXT TO IT AND STATED SHE REALLY HAD NO IDEA HOW SICK SHE HAD ALLOWED HERSELF TO GET. pATIENT AND THIS NURSE TALKED ABOUT HER STRESS REACTION LAST NIGHT, AND SHE THOUGHT IT COULD BE DUE TO THE SOLU CORTEF SHE HAS REACTED TO STEROIDS IN SIMILAR WAYS BEFORE. (pATIENT ASKING FOR HIGHER DOSE OF ANTIANXIETY, AND ALSO NEW ORDER FOR 1.5 PIECES OF NICOTINE GUM INSTEAD OF ONE WHEN SHE FIRST GETS UP IN THE MORNING.
[2020-07-21 08:08] LABS: HBSAG SCREEN Negative (Negative)
--- NOTE | 2020-07-21 15:43 | NUR ---
ADMIT: 07/19/20 DISCHARGE: DX: Crohn's disease CC:kwilcox ADMIT: 02/02/20 DISCHARGE: 02/04/20 DX: CROHNS CC: CPEABODY ADMIT: 11/27/18 DISCHARGE: 11/28/18 DX: CHEST PAIN CC: ADMIT: 05/28/17 DX: SMALL BOWEL OBSTRUCTION SINGH CALL: pt at home RESIDENCE: home CAREGIVER: self DX: chronic pain, crohn's diease, chronic anemia, see list DME: none CCM: none HOME HEALTH: none SUMMARY: Admit: 07/19/20 07/21/20- per chart review, Dr. Alex requested GI consult. Dr. Torre saw pt and reports that pt has not been seen for the last 2-3 years by GI. She was started on ELEANOR sterioids-hydrocortisone and will be transitioned to oral prednisone at d/c. Pt will nee to have f/u appt with GI to discuss long-term treatment. Pt had anxiety attack last night and was treated with xanax. -nighat
--- NOTE | 2020-07-22 03:33 | NUR ---
PROFESSIONAL SERVICES MANAGER SUMMARY A/OX3. EXTREMELY ANXIOUS T/O BEGINNING OF SHIFT. PT STATING SHE IS GOING TO GET A TAXI AND LEAVE AMA. PT IN AGREEMENT WITH TRYING OT ADDITIONAL DOSE OF XANAX WHICH DID DECREASE HER ANXIETY. DENIES PAIN OR SOB AT THIS TIME. CURRENTLY ON RA WITH SATS GREATER THAN 92. CLINIMEX RUNNING TO [facility]. VSS, NO ACUTE CHANGES AT THIS TIME. BED IN LOWEST POSITION WITH CALL LIGHT IN REACH. WILL CONTINUE TO MONITOR AND REPORT TO ONCOMING RN.
--- NOTE | 2020-07-23 03:49 | NUR ---
HEALTH AND SAFETY INSPECTOR SUMMARY A/OX3, INDEPENDENT TO BATHROOM/WALKING HALLS. C/O ABD PAIN, MEDICATED PER EMAR. PT CONTINUES TO BE EXTREMELY ANXIOUS AT TIMES AND STARTS TALKING TO HERSELF TO CALM HERSELF DOWN. PRN XANAX GIVEN. VSS, NO ACUTE CHANGES AT THIS TIME. BED IN LOWEST POSITION WITH CALL LIGHT IN REACH. WILL CONTINUE TO MONITOR AND REPORT TO ONCOMING RN.
[2020-07-23] MEDS ORDERED: Acetaminophen325 M1 PO (11:55)
[2020-07-23] MEDS ORDERED: LOSA25 PO (11:56)
[2020-07-23] MEDS ORDERED: PRED20 PO (11:57)
[2020-07-23] MEDS ORDERED: Flonase 0.05% N16 GM (11:57)
[2020-07-23] MEDS ORDERED: ONE DAILY ESS400 MCG PO (11:58)
[2020-07-23] MEDS ORDERED: EUTHYROX50 MCG PO (12:12)
[2020-07-23] MEDS ORDERED: ESCI5 PO (12:12)
--- NOTE | 2020-07-23 13:08 | NUR ---
DISCHARGE INSTRUCTIONS COMPLETED AND DISCUSSED WITH PT EXPRESSING UNDERSTANDING. MD ALSO DISCUSSED MEDICATIONS WITH PT AND COLLECTION AGENT SPOKE WITH PT ABOUT PLANS FOR FOLLOW UP. BALJINDER DEACCESSED. PTS RIDE OUTSIDE TO PICK HER UP. TO [facility] BY AMBULATION PER HER REQUEST.
[2020-07-23 21:11] LABS: QUANTIFERON MITOGEN VALUE >10.00 IU/mL (.); QUANTIFERON NIL VALUE 0.03 IU/mL (.); QUANTIFERON TB1 AG VALUE 0.05 IU/mL (.); QUANTIFERON TB2 AG VALUE 0.04 IU/mL (.); QUANTIFERON-TB GOLD PLUS Negative (Negative)
--- NOTE | 2020-07-23 22:14 | NUR ---
ADMIT: 07/19/20 DISCHARGE: 07/23/20 DX: Crohn's disease CC:cpeabody ADMIT: 02/02/20 DISCHARGE: 02/04/20 DX: CROHNS CC: CPEABODY ADMIT: 11/27/18 DISCHARGE: 11/28/18 DX: CHEST PAIN CC: ADMIT: 05/28/17 DX: SMALL BOWEL OBSTRUCTION SINGH CALL: Met with Neena, call her at home for singh RESIDENCE: home, alone CAREGIVER: self DX: chronic pain, crohn's diease, chronic anemia, dementia - mild see list DME: none CCM: referral sent 07/23/20 dementia HOME HEALTH: none SUMMARY: Admit: 07/19/20 07/23/20 Discharge home, met with Neena, discussed her new dx of dementia. She is interested in a guardian due to lack of family support or trust to manage her future care. Gave her a list of Guardians and Rn Rehabilitation in the area that can assist her. she would like to move to assisted living, with memory care available for future care. She plans to sell her home and spend down to then be eligable for medicaid. Gave her list of assisted livings in the area to contact. Dr Penny requested chronic care management to help moniter and manage her care needs due to new dx of dementia. I sent referral to ccm. Reviewed transition of care letter and discharge checklist. expect singh call from [facility] or tuesday to schedule follow up appointment. yair
== END 2020-07-23 12:52 | disposition home or self-care (01) | DRG 386 ==
LOC: ER 19:54 → MEDS 07-19 01:24
PROVIDERS: Emergency Medicine; Hospitalist; Internal Medicine; Internal Medicine Gastroenterology; ADMIT Internal Medicine
DX: K50.80 Crohn's disease of both small and large intestine without complications (principal); N13.6 Pyonephrosis; E03.9 Hypothyroidism, unspecified; E87.6 Hypokalemia; F03.90 Unspecified dementia, unspecified severity, without behavioral disturbance, psychotic disturbance, mood disturbance, and anxiety; M81.0 Age-related osteoporosis without current pathological fracture; Z20.822 Contact with and (suspected) exposure to COVID-19; I10 Essential (primary) hypertension; D63.8 Anemia in other chronic diseases classified elsewhere; Z23 Encounter for immunization; Z90.49 Acquired absence of other specified parts of digestive tract; M54.9 Dorsalgia, unspecified; G89.29 Other chronic pain; K52.9 Noninfective gastroenteritis and colitis, unspecified; F32.9 Major depressive disorder, single episode, unspecified; Z98.890 Other specified postprocedural states; Z90.710 Acquired absence of both cervix and uterus; Z90.722 Acquired absence of ovaries, bilateral; Z87.891 Personal history of nicotine dependence; Z88.5 Allergy status to narcotic agent; Z88.8 Allergy status to other drugs, medicaments and biological substances; M40.295 Other kyphosis, thoracolumbar region; M54.2 Cervicalgia; Z79.899 Other long term (current) drug therapy
CPT/HCPCS: 0241U; 36415; 71045; 74177; 76770; 80053; 81001; 82607; 82746; 83690; 83735; 83880; 84100; 84443; 84484; 85025; 86140; 86480; 87086; 87340; 92507; 92523; 93005; 93010; 94760; 96374-59; 96375; 96376; 97129; 97130; 97161; 97165; 99285-25; A9270; G0008; J1170; J1642; J1650; J1720; J1956; J2060; J2550; J2997; J3010; J3411; J7050; J7120; J7512; Q2038; Q9967

== ENCOUNTER 2020-07-24 18:03 | Emergency (ER) | payer MEDICARE ==
[~2020-07-24] VITALS: Ht 154.9 cm; Wt 49.9 kg
[~2020-07-24 18:03] MED LIST changes: +Acetaminophen325 M1 PO; +BRIMONIDINE TART5 M2 LEFTEYE; +DORZOPSO; +DORZOPSO BOTHEYES; +ESCI5 PO; +EUTHYROX50 MCG PO; +Flonase 0.05% N16 GM; +LATA.005SO BOTHEYES; +LORA10ER PO; +LOSA25 PO; +ONE DAILY ESS400 MCG PO
[2020-07-24 18:58] LABS: BASOPHILS ABSOLUTE AUTO 0.03 K/mm3 (0.00-0.23); BASOPHILS PERCENT AUTO 0 % (0-2); EOSINOPHILS ABSOLUTE AUTO 0.08 K/mm3 (0.00-0.68); EOSINOPHILS PERCENT AUTO 1 % (0-6); Hematocrit 36.7 % (33.0-51.0); Hemoglobin 10.8 g/dL (11.5-16.0); IMMATURE GRAN ABSOLUTE AUTO 0.04 K/mm3 (0.00-0.10); IMMATURE GRAN PERCENT AUTO 1 % (0-1); LYMPHOCYTES PERCENT AUTO 18 % (21-46); MONOCYTES ABSOLUTE AUTO 0.72 K/mm3 (0.16-1.47); MONOCYTES PERCENT AUTO 8 % (4-13); Mean Corpuscular HGB 20.1 pg (26.0-34.0); Mean Corpuscular HGB Conc 29.4 g/dL (31.5-36.5); Mean Corpuscular Volume 68 fL (80-100); NEUTROPHILS ABSOLUTE AUTO 6.27 K/mm3 (1.96-9.15); NEUTROPHILS PERCENT AUTO 72 % (41-73); RDW Coefficient Variation 18.5 % (11.7-14.2); RDW Standard Deviation 44.3 fL (35.1-46.3); Red Blood Cell Count 5.37 M/mm3 (3.80-5.20); White Blood Cell Count 8.74 K/mm3 (4.00-11.30)
[2020-07-24 19:04] LABS: Mean Platelet Volume 10.2 fL (9.1-12.4); Platelet Count 240 K/mm3 (150-400)
[2020-07-24 19:27] LABS: Alanine Aminotransfer (ALT/SGP 24 U/L (12-78); Albumin, Blood 3.2 g/dL (3.4-5.0); Albumin/Globulin Ratio 0.8 (0.8-1.8); Alk Phos 119 U/L (50-136); Anion Gap 7 mmol/L (6-16); Aspartate Aminotrans (AST/SGOT 29 U/L (12-37); Bilirubin, Total 0.3 mg/dL (0.1-1.0); Blood Urea Nitrogen 16 mg/dL (8-24); Bun/Creatinine Ratio 19.2 (12.0-20.0); CO2, Blood 31 mmol/L (21-32); Calcium, Blood 8.5 mg/dL (8.5-10.1); Chloride, Blood 107 mmol/L (98-108); Creatinine, Blood 0.83 mg/dL (0.40-1.00); Globulin, Blood 4.2 g/dL (2.2-4.0); Glomerular Filtration Rate >60 (60-); Glucose, Blood 100 mg/dL (70-99); Potassium, Blood 2.5 mmol/L (3.5-5.5); Sodium, Blood 145 mmol/L (136-145); Total Protein, Blood 7.4 g/dL (6.4-8.2)
[2020-07-25] MEDS ORDERED: K-Dur20 MEQ PO (01:33)
== END 2020-07-25 02:39 | disposition home or self-care (01) ==
LOC: ER 18:03
PROVIDERS: Physician Assistant
DX: F41.9 Anxiety disorder, unspecified (principal); E87.6 Hypokalemia; K50.90 Crohn's disease, unspecified, without complications; Z88.5 Allergy status to narcotic agent; Z79.899 Other long term (current) drug therapy; Z87.891 Personal history of nicotine dependence
CPT/HCPCS: 36415; 80053; 83690; 83735; 84132; 85025; 93005; 93010; 96365; 96366; 96375; 99284-25; A9270; J2060; J3480; J7030

== ENCOUNTER 2020-10-21 15:33 | Inpatient (IN) | payer MEDICARE ==
[~2020-10-21] VITALS: Ht 152.4 cm; Wt 49.9 kg
[2020-10-21 17:12] LABS: BASOPHILS ABSOLUTE AUTO 0.06 K/mm3 (0.00-0.23); BASOPHILS PERCENT AUTO 1 % (0-2); EOSINOPHILS ABSOLUTE AUTO 0.02 K/mm3 (0.00-0.68); EOSINOPHILS PERCENT AUTO 0 % (0-6); Hematocrit 34.5 % (33.0-51.0); Hemoglobin 10.4 g/dL (11.5-16.0); IMMATURE GRAN PERCENT AUTO 1 % (0-1); LYMPHOCYTES ABSOLUTE AUTO 1.04 K/mm3 (0.84-5.20); LYMPHOCYTES PERCENT AUTO 13 % (21-46); MONOCYTES ABSOLUTE AUTO 0.57 K/mm3 (0.16-1.47); MONOCYTES PERCENT AUTO 7 % (4-13); Mean Corpuscular HGB 21.6 pg (26.0-34.0); Mean Corpuscular HGB Conc 30.1 g/dL (31.5-36.5); Mean Corpuscular Volume 72 fL (80-100); Mean Platelet Volume 10.3 fL (9.1-12.4); NEUTROPHILS PERCENT AUTO 78 % (41-73); Platelet Count 374 K/mm3 (150-400); RDW Coefficient Variation 23.9 % (11.7-14.2); RDW Standard Deviation 59.4 fL (35.1-46.3); Red Blood Cell Count 4.82 M/mm3 (3.80-5.20); White Blood Cell Count 8.19 K/mm3 (4.00-11.30)
[2020-10-21 19:21] LABS: Albumin, Blood 3.4 g/dL (3.4-5.0); Albumin/Globulin Ratio 0.9 (0.8-1.8); Bilirubin, Total 0.3 mg/dL (0.1-1.0); Bun/Creatinine Ratio 31.8 (12.0-20.0); Calcium, Blood 8.4 mg/dL (8.5-10.1); Creatinine, Blood 1.76 mg/dL (0.40-1.00); Globulin, Blood 3.8 g/dL (2.2-4.0); Total Protein, Blood 7.2 g/dL (6.4-8.2)
[2020-10-21 20:34] LABS: Appearance, Urine Cloudy (Clear); Bilirubin, Urine Neg (Neg); Blood, Urine 5+ (Neg); Color, Urine Yellow (P-Yellow); Glucose Qualitative, Urine Neg (Neg); Ketones, Urine Neg (Neg); Leukocyte Esterase, Urine 3+ (Neg); Nitrite, Urine Neg (Neg); Protein, Urine 3+ (Neg); Source, Urine Catheter; Urobilinogen, Urine NORM (Normal)
[2020-10-21 20:35] LABS: White Blood Cells, Urine 25-50 /hpf (0-5)
[2020-10-21 20:36] LABS: Bacteria Many /hpf; Red Blood Cells, Urine TNTC /hpf (0-2); Squamous Epithelial Cells Mod /hpf (Few)
[2020-10-21] MEDS ORDERED: ACET250 PO (22:33)
[2020-10-21] MEDS ORDERED: Aspir 8181 MG PO (22:34)
[2020-10-21] MEDS ORDERED: NICO2 PO (22:37)
[2020-10-21] MEDS ORDERED: POTCHL20ER PO (22:39)
[2020-10-21] MEDS ORDERED: MELATONIN5 M1 PO (22:48)
[2020-10-21] MEDS ORDERED: BISA10S PR (22:49)
[2020-10-21] MEDS ORDERED: ALLEGRA ALLERG180 MG PO (22:51)
--- NOTE | 2020-10-21 23:01 | NUR ---
ADMIT NOTE HANDOFF RECEIVED FROM ER NURSE CAROLINA. PT ARRIVED TO FLOOR VIA GURNEY. PERSONAL POSSESSIONS WITH PT. CALL BUTTON WITHIN REACH. BED ALARM IS ACTIVE
--- NOTE | 2020-10-22 04:11 | NUR ---
SHIFT SUMMARY ADMITTED FOR ELIZABETH/UTI THIS SHIFT. FULL CODE. PT S/SX INCLUDE ABD PAIN, SOB, AND LACK OF APPETITE X2 D. PLAN IS FOR IV FLUIDS, IV ANTIB RX, LIQUID DIET, SOLUMEDROL AND MX LABS. LR IS INFUSING @ 125 ML/HR. IV ANTIBIOTICS ARE SCHEDULED. MEDIPORT ACCESSED IN ER.
--- NOTE | 2020-10-22 04:22 | NUR ---
CALLED HOSPITALIST RE: LISTED "STEROID ALLERGY" INFORMED HIM OF LISTED ALLERGY TO STEROIDS IN PT ALLERGIES, SHE IS BEING GIVEN SOLUMEDROL HERE THIS ADMIT. DR WILKINS INFORMED ME THAT ON PREVIOUS ADMITS SHE HAS BEEN ADMINISTERED STEROIDS WITH NO REACTIONS NOTED. CHARGE INFORMED. PT IS RESTING COMFORTABLY AT THIS TIME WITH NO ADVERSE S/SX REPORTED
[2020-10-22 05:37] LABS: Bun/Creatinine Ratio 33.5 (12.0-20.0); Calcium, Blood 7.9 mg/dL (8.5-10.1); Creatinine, Blood 1.58 mg/dL (0.40-1.00); Potassium, Blood 4.5 mmol/L (3.5-5.5)
--- NOTE | 2020-10-22 16:01 | NUR ---
CARE COORDINATION REFERRAL - ADMIT: 10/21/20 DISCHARGE: DX: ACUTE KIDNEY INJURY, POOR ORAL INTAKE CC: KWILCOX ADMIT: 07/19/20 DISCHARGE: 07/23/20 DX: CROHN'S DISEASE ADMIT: 02/02/20 DISCHARGE: 02/04/20 DX: CROHNS ADMIT: 11/27/18 DISCHARGE: 11/28/18 DX: CHEST PAIN ADMIT: 05/28/17 DX: SMALL BOWEL OBSTRUCTION SINGH CALL: MARCUS ZAYAS STAFF (UPCOMING APPT WITH BONDS, 10/27/20) RESIDENCE: MARCUS ZAYAS CAREGIVER: YOLY MAZA, SISTER IN LAW, . LIANA MAZA, BROTHER, . ARTURO SINGER, SISTER, . DX: CHRONIC ANEMIA, CHRONIC BACK PAIN, CROHN'S DISEASE, SEE LIST DME: HOSPITAL BED CCM: REFERRAL 2020 HOME HEALTH: NONE SUMMARY: 10/22/20- PER CHART REVIEW WITH DR. OLIVEIRA, PT IS NOT MEDICALLY STABLE FOR D/C AND WILL NEED TO STAY FOR A COUPLE MORE DAYS IN THE HOSPITAL. PT WAS STARTED ON IV FLUIDS. -NICOLE
--- NOTE | 2020-10-22 17:14 | NUR ---
Spiritual care note: Ms. Clarke appears frail and confused. She was unable to participate in conversation. Adjusted her pillows and lowered head of bed for better comfort. She responded 'yes' when asked if this was better. I sat with ehr awhile providing presence and silent prayer. No family present. I will remain available.
--- NOTE | 2020-10-22 19:49 | NUR ---
SHIFT SUMMARY PT A/O X2 AND C/O BACK AND ABD PAIN. TREATED PER EMR WITH GOOD EFFECT. PT MORE CONFUSED THAN BASELINE. CONSULT CALLED TO NEPHROLOGY DUE TO ELIZABETH AND METABOLIC ACIDOSIS. PT HYPOTENSIVE AT BASELINE. EXTREME KYPHOSIS NOTED AND MEPILEX DRESSING APPLIED TO BONY PROMINENCE ON BACK.
[2020-10-22 22:15] LABS: PCO2 Arterial 30.3 mmHg (35-45); PO2 Arterial 96.5 mmHg (80-100)
[2020-10-22 22:16] LABS: pH Blood Arterial 7.16 (7.35-7.45)
[2020-10-22 22:54] LABS: Anion Gap 9 mmol/L (6-16); Blood Urea Nitrogen 49 mg/dL (8-24); Bun/Creatinine Ratio 32.9 (12.0-20.0); CO2, Blood 12 mmol/L (21-32); Chloride, Blood 124 mmol/L (98-108); Creatinine, Blood 1.49 mg/dL (0.40-1.00); Glomerular Filtration Rate 37 (60-); Glucose, Blood 118 mg/dL (70-99); Potassium, Blood 4.2 mmol/L (3.5-5.5); Sodium, Blood 145 mmol/L (136-145)
[2020-10-23 00:25] LABS: Acetaminophen, Random <2.0 ug/mL (10.0-30.0); Osmolality, Serum 320 mos/KG (275-300)
--- NOTE | 2020-10-23 04:31 | NUR ---
CHILD WELFARE SOCIAL WORKER SUMMARY PT A/O X2 WITH CONFUSION. PT ONLY SPEAKS A FEW WORDS, MOSTLY ANSWERS YES/NO QUESTIONS. MEDICATED ONCE FOR PAIN OVERNIGHT. PT UNABLE TO EXPRESS TO THIS RN WHERE HER PAIN IS. APPEARS PAIN TO BE WITH MOVEMENT. REFUSED MEDS OVERNIGHT. DR. VASQUEZ AWARE OF PT'S ABG'S. D5W WITH SODIUM BICARB RUNNING CONTINUOUSLY THROUGH IV PER ORDER. CALL LIGHT WITHIN REACH, BED ALARM ON, WILL CONTINUE TO MONITOR.
[2020-10-23 05:22] LABS: Hematocrit 28.7 % (33.0-51.0); Hemoglobin 8.9 g/dL (11.5-16.0)
[2020-10-23 05:58] LABS: Albumin, Blood 2.9 g/dL (3.4-5.0); Anion Gap 8 mmol/L (6-16); Blood Urea Nitrogen 50 mg/dL (8-24); Bun/Creatinine Ratio 33.1 (12.0-20.0); CO2, Blood 15 mmol/L (21-32); Calcium, Blood 7.8 mg/dL (8.5-10.1); Chloride, Blood 123 mmol/L (98-108); Creatinine, Blood 1.51 mg/dL (0.40-1.00); Glomerular Filtration Rate 36 (60-); Glucose, Blood 142 mg/dL (70-99); Phosphorus, Blood 4.1 mg/dL (2.5-4.9); Potassium, Blood 3.8 mmol/L (3.5-5.5); Sodium, Blood 146 mmol/L (136-145)
[2020-10-23 10:34] LABS: U Amphetamine Screen Not Detected; U Barbituate Screen Not Detected; U Benzodiazapine Screen Not Detected; U Buprenorphine Screen Not Detected; U Cannabinoids Screen Not Detected; U Cocaine Screen Not Detected; U Methadone Screen Not Detected; U Methamphetamine Screen Not Detected; U Opiates Screen DETECTED; U Oxycodone Screen Not Detected; U Phencyclidine Screen Not Detected; U Propoxyphene Screen Not Detected
--- NOTE | 2020-10-23 16:17 | NUR ---
10/23/20- per chart review with Dr. Arriaga, pt has swallow eval and was found to prefer a puree diet and pt felt that the soft diet is too hard. Pt was also seen by PT. Their recommendation is for her to return for [facility]. has also put in palliative consult and OT orders. Floor nurse asked if we have copies of pt's POA because pt's daughter called and would like to discuss her mom's care but they have nothing on file at the hospital. Printed POA document and taken to pt's floor nurse. -nighat
--- NOTE | 2020-10-23 18:18 | NUR ---
PATIENT IS ALERT. SHE IS ORIENTED TO SELF AND FOLLOWING DIRECTIONS. SHE IS CONFUSED. ST ASSESSED THE PATIENT TODAY AND PLAED HER ON A PUREE DIET. PAIN MANAGED PER EMAR AND HEATING PAD. WILL CONTINUE TO MONITOR
--- NOTE | 2020-10-23 23:29 | NUR ---
PT AGITATED AND KEEPS TRYING TO GET OUT OF BED 1999 TOWARDS BEGINNING OF NOC SHIFT, PT HAD BEEN CRYING OUT AND TRYING TO GET OUT OF BED FREQUENTLY. PT KEPT SAYING "I DON'T FEEL GOOD". PT SAID SHE FELT NAUSEOUS. HOSPITALIST NOTIFIED, IV REGLAN ORDERED. WHEN THIS RN CAME BACK TO TO GIVE IT, PT STATED SHE WAS NOT NAUSEOUS ANYTHING. HOWEVER, PT WAS STILL UPSET AND KEPT SAYING "I DON'T FEEL GOOD". PT UNABLE TO TELL RN WHERE SHE DOESN'T FEEL GOOD. PT REPOSIONED IN BED TO HELP WITH COMFORT. THIS RN OFFERED PT PAIN MEDICATION TO WHICH PT REFUSED. PT BECAME MORE FRUSTRATED. PT HAS HX OF ANXIETY. HOSPTIALIST NOTIFIED, IV ATIVAN GIVEN AT 2106. PT'S BP ASSESSED AFTER THIS WAS GIVEN AND IS STABLE. AFTER ATIVAN WAS GIVEN, PT APPEARED TO BE MORE CALM AND WAS ABLE TO TELL ME SHE NEEDED NICOTINE GUM. PT IS A FORMER SMOKER. PT ONLY HAS LOWER DENTURES AND IS ON SWALLOW PRECAUTION. NICOTINE PATCH ORDERED AND WILL GIVE THIS TO HER ONCE PHARMACY VERIFIES.
--- NOTE | 2020-10-24 03:17 | NUR ---
COLD STRIP FEEDER SUMMARY PT A/O X2. PT ONLY SPEAKS A FEW WORDS AND ANSWERS MOSTLY YES/NO QUESTIONS. PT HAS SLEPT SINCE ATIVAN WAS GIVEN. BED ALARM ON, CALL LIGHT WITHIN REACH. SEE PREVIOUS NOTE FOR BEHAVIOR DETAILS. WILL CONTINUE TO MONITOR.
[2020-10-24 05:04] LABS: BASOPHILS PERCENT AUTO 0 % (0-2); EOSINOPHILS PERCENT AUTO 0 % (0-6); Hematocrit 24.2 % (33.0-51.0); Hemoglobin 7.7 g/dL (11.5-16.0); IMMATURE GRAN ABSOLUTE AUTO 0.02 K/mm3 (0.00-0.10); IMMATURE GRAN PERCENT AUTO 1 % (0-1); LYMPHOCYTES ABSOLUTE AUTO 0.49 K/mm3 (0.84-5.20); LYMPHOCYTES PERCENT AUTO 14 % (21-46); MONOCYTES ABSOLUTE AUTO 0.22 K/mm3 (0.16-1.47); MONOCYTES PERCENT AUTO 6 % (4-13); Mean Corpuscular HGB 21.9 pg (26.0-34.0); Mean Corpuscular HGB Conc 31.8 g/dL (31.5-36.5); Mean Corpuscular Volume 69 fL (80-100); Mean Platelet Volume 10.9 fL (9.1-12.4); NEUTROPHILS PERCENT AUTO 79 % (41-73); Platelet Count 249 K/mm3 (150-400); RDW Coefficient Variation 23.6 % (11.7-14.2); RDW Standard Deviation 56.2 fL (35.1-46.3); Red Blood Cell Count 3.52 M/mm3 (3.80-5.20); White Blood Cell Count 3.43 K/mm3 (4.00-11.30)
[2020-10-24 05:48] LABS: Albumin, Blood 2.7 g/dL (3.4-5.0); Bilirubin, Total 0.2 mg/dL (0.1-1.0); Bun/Creatinine Ratio 36.1 (12.0-20.0); Calcium, Blood 7.4 mg/dL (8.5-10.1); Creatinine, Blood 1.19 mg/dL (0.40-1.00); Globulin, Blood 2.7 g/dL (2.2-4.0); Potassium, Blood 2.7 mmol/L (3.5-5.5); Total Protein, Blood 5.4 g/dL (6.4-8.2)
--- NOTE | 2020-10-24 07:30 | NUR ---
REPORT RECIEVED FROM AROLDO PEREZ. PT CONFUSED AND SET OFF BED ALARM 3 TIMES DURING REPORT. CALL TO INSPECTOR OF WEIGHTS AND MEASURES TO TRANSFER PT TO SCU. REPORT GIVEN TO GABI PEREZ. PT TRANSFERRED VIA WHEEL CHAIR TO ROOM 344
[2020-10-24 13:34] LABS: Magnesium, Blood 1.6 mg/dL (1.6-2.4)
[2020-10-24 13:35] LABS: Potassium, Blood 3.5 mmol/L (3.5-5.5)
--- NOTE | 2020-10-24 15:52 | NUR ---
10/24/20- per chart review with Dr. Arriaga, pt can go home tomorrow to [facility]. Met with pt, she reports that she was not independent prior to coming in. She received help from staff and [facility] but she has not had home health services before. Pt states that her [facility] is her POA and also her next of kin. Pt does not want her son to be part of her care because he "freaks out and creates scenes." Pt reports that her pharmacy is [facility]. Discussed SINGH and that she will most likely go home over the weekend. -nighat
--- NOTE | 2020-10-24 18:10 | NUR ---
SHIFT SUMMARY PT TRANSFERRED TO ROOM 344 FROM ROOM 336 THIS SHIFT. RECEIVED REPORT FROM ANA MILLER. PT A&OX3, FORGETUL AT TIME. ABLE TO MAKE NEEDS KNOWN. PLEASANT AND COOPERATIVE TO CARE. PT REQUIRES 1P ASSIST TO BSC. MEDICATED FOR CHRONIC BACK PAIN PER EMAR. NO C/O CP, SOB, OR N&V. NO ACUTE CHANGES NOTED TO PT THIS SHIFT. NO S/S CONFUSION OR ANY OTHER BEHAVIORAL ISSUES NOTED THIS SHIFT. BED AT LOWEST POSITION, WITH ALARM ON FOR SAFETY. CALL LIGHT WITHIN REACH.
--- NOTE | 2020-10-25 05:25 | NUR ---
SHIFT SUMMARY- PT. A&O, FORGETFUL AT TIMES. PT. IMPULSIVE DURING THE NIGHT, HIGH FALL RISK IS A 1 ASSIST WITH AMBUATION. PLACED ON CAMERA. PT. STATED VERY ANXIOUS LAST NIGHT REQUESTING NICOTINE GUM. NOTIFIED HOSPITALIST, MEDICATED PER EMAR WITH GOOD EFFECT. HAD NO COMPLAINTS OF PAIN OR DISCOMFORT THE REST OF THE NIGHT, ASLEEP MOST OF THE NIGHT. NO APPARENT DISTRESS NOTED, VSS. CALL LIGHT WITHIN REACH, SIDE RAILS UPX2, AND BED ALARM ON. WILL CONT TO MONITOR.
[2020-10-25 05:31] LABS: Hematocrit 24.6 % (33.0-51.0); Hemoglobin 7.6 g/dL (11.5-16.0)
[2020-10-25 05:56] LABS: Albumin, Blood 2.8 g/dL (3.4-5.0); Anion Gap 4 mmol/L (6-16); Blood Urea Nitrogen 32 mg/dL (8-24); Bun/Creatinine Ratio 30.8 (12.0-20.0); CO2, Blood 26 mmol/L (21-32); Calcium, Blood 7.3 mg/dL (8.5-10.1); Chloride, Blood 113 mmol/L (98-108); Creatinine, Blood 1.04 mg/dL (0.40-1.00); Glomerular Filtration Rate 56 (60-); Glucose, Blood 113 mg/dL (70-99); Magnesium, Blood 1.9 mg/dL (1.6-2.4); Phosphorus, Blood 2.5 mg/dL (2.5-4.9); Potassium, Blood 3.4 mmol/L (3.5-5.5); Sodium, Blood 143 mmol/L (136-145)
--- NOTE | 2020-10-25 10:55 | NUR ---
I HAVE LOOKED FOR THE WALLET AND HAVE HAD NO LUCK FINDING IT.
--- NOTE | 2020-10-25 12:06 | NUR ---
POOR APPETITE PATIENT HAVING POOR APPETITE. PER V.O. FROM DR. Venkatesh VASQUEZ, START CLINIMIX @ 50 MLS/HR. EMAR UPDATED.
--- NOTE | 2020-10-25 12:07 | NUR ---
KELLY LARA FINAL RESULTS OF URINE CX CAME BACK NEGATIVE. PER T.O. FROM Chris CUELLO/Neris LARA.
--- NOTE | 2020-10-25 12:08 | NUR ---
LOOSE STOOLS PATIENT HAVING LOOSE STOOLS THIS AM, APPROXIMATELY 3 THUS FAR INTO THE SHIFT. DISCUSSED WITH DR. OLIVEIRA, DECLINED ORDER FOR C-DIFF.
--- NOTE | 2020-10-25 15:17 | NUR ---
DRY ITCHY EYE C/O DRY ITCHY L EYE. PATIENT HAS BEEN RUBBING ON IT. RECEIVED T.O. FOR ARTIFICAL TEARS Q4H PRN FOR DRY EYES.
--- NOTE | 2020-10-25 16:56 | NUR ---
Shift Summary A/Ox3, forgetful. Reports that she currently lives alone in her home she moved into a few months ago, but sister/POGenna Gonzalez states she lives in [facility]. Call to [facility] states they do not take patients back on the weekend d/t no nurse available to take orders, Dr. Arriaga notified. Patient has been rubbing on L eye d/t itchiness and dryness, medicated per EMAR. Had multiple loose stools. NS @ 50 d/c per Dr. Trujillo, Clinimix initiated in place d/t poor appetite. 1u PRBC transfused, patient tolerated well. Impulsive and forgetful using the call light. See previous note RE loose stools not sent to lab for testing. WCTM.
[2020-10-26 04:52] LABS: Hematocrit 29.2 % (33.0-51.0)
[2020-10-26 05:14] LABS: Albumin, Blood 2.7 g/dL (3.4-5.0); Anion Gap 5 mmol/L (6-16); Blood Urea Nitrogen 26 mg/dL (8-24); Bun/Creatinine Ratio 30.3 (12.0-20.0); CO2, Blood 26 mmol/L (21-32); Calcium, Blood 7.6 mg/dL (8.5-10.1); Chloride, Blood 112 mmol/L (98-108); Creatinine, Blood 0.86 mg/dL (0.40-1.00); Glomerular Filtration Rate >60 (60-); Glucose, Blood 106 mg/dL (70-99); Phosphorus, Blood 2.1 mg/dL (2.5-4.9); Potassium, Blood 3.2 mmol/L (3.5-5.5); Sodium, Blood 143 mmol/L (136-145)
--- NOTE | 2020-10-26 05:38 | NUR ---
SHIFT SUMMARY- PT. C/O NA DURING THE NIGHT. MEDICATED PER EMAR 2X THIS SHIFT WITH SOME RELIEF. CLINIMIX INFUSING PER ORDER, PT. TOLERATING WELL. DENIED ANY PAIN T/O THE NIGHT. SLEPT T/O THE NIGHT, NO APPARENT DISTRESS NOTED. VSS. CALL LIGHT WITHIN REACH, SIDE RAILS UPX2, AND BED ALARM ON. WILL CONT TO MONITOR.
--- NOTE | 2020-10-26 19:16 | NUR ---
SHIFT SUMMARY PT IS AO. PT DENIES PAIN, N/V. PT FELT SOB THIS SHARON AND MEDICATIONS GIVEN PER EMAR. PT PLACED ON 1 L O2 VIA NC FOR COMFORT. VSS. PT IS SBA TO [facility]. APPETITE IS POOR. MEPILEX PLACED ON UPPER SPINE. NO PROCEDURES DONE THIS SHIFT. PT DID NOT HAVE VISITORS. PLAN IS FOR DC TOMORROW. PT IS IN BED, CALL LIGHT IN REACH, BED IN LOW POSITION.
--- NOTE | 2020-10-27 04:30 | NUR ---
SHIFT SUMMARY- NO ACUTE EVENTS OVERNIGHT. PT. REMAINED IMPULSIVE DURING THE NIGHT. DENIED PAIN OR DISCOMOFRT. SLEPT T/O THE NIGHT, NO APPARENT DISTRESS NOTED. CALL LIGHT WITHIN REACH, SIDE RAILS UPX2, AND BED ALARM ON. WILL CONT TO MONITOR.
[2020-10-27 06:07] LABS: Hematocrit 31.5 % (33.0-51.0); Hemoglobin 9.8 g/dL (11.5-16.0)
[2020-10-27 06:22] LABS: Albumin, Blood 2.7 g/dL (3.4-5.0); Anion Gap 4 mmol/L (6-16); Blood Urea Nitrogen 15 mg/dL (8-24); Bun/Creatinine Ratio 16.8 (12.0-20.0); CO2, Blood 30 mmol/L (21-32); Calcium, Blood 7.5 mg/dL (8.5-10.1); Chloride, Blood 108 mmol/L (98-108); Creatinine, Blood 0.89 mg/dL (0.40-1.00); Glomerular Filtration Rate >60 (60-); Glucose, Blood 93 mg/dL (70-99); Magnesium, Blood 1.5 mg/dL (1.6-2.4); Phosphorus, Blood 2.8 mg/dL (2.5-4.9); Potassium, Blood 2.8 mmol/L (3.5-5.5); Sodium, Blood 142 mmol/L (136-145)
--- NOTE | 2020-10-27 17:43 | NUR ---
PT AOX4 AND COOPERATIE OF CARE. PT HAS BEEN HAVING NAUSEA TODAY AND WAS TREATED PER EMAR. PT CALL APPROPRIATELY AND IS COOPERATIVE OF CARE. PT IS A STANDBY ASSIST TO RESTROOM AT THIS TIME. WILL CONTINUE TO MONITOR.
--- NOTE | 2020-10-28 05:55 | NUR ---
SHIFT SUMMARY PATIENT ALERT AND ORIENTED X3. WAS MEDICATED PER EMAR FOR PAIN. NO COMPLAINTS OF SHORTNESS OF BREATH. NO ACUTE ISSUES NOTED OVERNIGHT. MEDIPORT PATENT AND INFUSING. BED IN LOWEST POSITION WITH WHEELS LOCKED AND ALARM ON. CALL LIGHT WITHIN REACH. REPORT GIVEN TO ONCOMING RN.
[2020-10-28 05:56] LABS: Hematocrit 31.3 % (33.0-51.0); Hemoglobin 9.8 g/dL (11.5-16.0)
[2020-10-28 06:29] LABS: Albumin, Blood 2.8 g/dL (3.4-5.0); Anion Gap 2 mmol/L (6-16); Blood Urea Nitrogen 12 mg/dL (8-24); Bun/Creatinine Ratio 14.3 (12.0-20.0); CO2, Blood 31 mmol/L (21-32); Calcium, Blood 7.7 mg/dL (8.5-10.1); Chloride, Blood 108 mmol/L (98-108); Creatinine, Blood 0.84 mg/dL (0.40-1.00); Glomerular Filtration Rate >60 (60-); Glucose, Blood 97 mg/dL (70-99); Magnesium, Blood 2.3 mg/dL (1.6-2.4); Phosphorus, Blood 3.3 mg/dL (2.5-4.9); Potassium, Blood 3.4 mmol/L (3.5-5.5); Sodium, Blood 141 mmol/L (136-145)
--- NOTE | 2020-10-28 13:38 | NUR ---
10/28/20- spoke with Ginette at [facility], they are looking forward to having the pt back. Ginette requested that we send d/c orders and med list when she d/c tomorrow. Will Fax them to [phone] -[facility]
--- NOTE | 2020-10-28 18:08 | NUR ---
PT REPORTS NAUSEA MOST OF THE SHIFT. MINIMAL APPETITE NOTED. PT IS MORE ALERT AND ABLE TO VOICE HER NEEDS. SHE IS A STANDBY ASSIST TO THE BATHROOM. PT IS COMPLIANT WITH CARES AND PLEASANT WITH STAFF.
--- NOTE | 2020-10-28 19:00 | NUR ---
ASSUMED CARE RECEIVED REPORT FROM ANA BUTCHER. PT RESTING, IN NAD. DENIES NEEDS AT THIS TIME. CALL LIGHT, POSSESSIONS IN REACH, BED IN LOW AND LOCKED POSITION WITH ALARMS ON.
--- NOTE | 2020-10-29 03:56 | NUR ---
DRUM DYEING MACHINE OPERATOR SUMMARY PT ASLEEP, IN NAD. HAS BEEN SLEEPING ON AND OFF T/O NIGHT. MEDICATED FOR NAUSEA X1, WITH GOOD RELIEF. PAIN MANAGED WITH MEDS PER EMAR. PT REPORTS INCREASED APPETITE, STATES "SHE FEELS HUNGRY." TOLERATING PUREE DIET WELL. NO OTHER ACUTE CHANGES TO REPORT OVERNIGHT. NO ACUTE NEEDS ASSESSED AT THIS TIME. CALL LIGHT, POSSESSIONS IN REACH, BED IN LOW AND LOCKED POSITION WITH ALARMS ON. WILL CONTINUE TO PROVIDE CARE UNTIL REPORT GIVEN TO ONCOMING RN.
[2020-10-29 05:27] LABS: BASOPHILS ABSOLUTE AUTO 0.02 K/mm3 (0.00-0.23); BASOPHILS PERCENT AUTO 0 % (0-2); EOSINOPHILS ABSOLUTE AUTO 0.16 K/mm3 (0.00-0.68); EOSINOPHILS PERCENT AUTO 3 % (0-6); Hematocrit 31.6 % (33.0-51.0); Hemoglobin 9.5 g/dL (11.5-16.0); IMMATURE GRAN ABSOLUTE AUTO 0.02 K/mm3 (0.00-0.10); IMMATURE GRAN PERCENT AUTO 0 % (0-1); LYMPHOCYTES ABSOLUTE AUTO 1.24 K/mm3 (0.84-5.20); LYMPHOCYTES PERCENT AUTO 20 % (21-46); MONOCYTES ABSOLUTE AUTO 0.46 K/mm3 (0.16-1.47); MONOCYTES PERCENT AUTO 7 % (4-13); Mean Corpuscular HGB 22.3 pg (26.0-34.0); Mean Corpuscular HGB Conc 30.1 g/dL (31.5-36.5); Mean Corpuscular Volume 74 fL (80-100); Mean Platelet Volume 11.4 fL (9.1-12.4); NEUTROPHILS ABSOLUTE AUTO 4.36 K/mm3 (1.96-9.15); NEUTROPHILS PERCENT AUTO 70 % (41-73); Platelet Count 246 K/mm3 (150-400); RDW Coefficient Variation 24.4 % (11.7-14.2); RDW Standard Deviation 64.6 fL (35.1-46.3); Red Blood Cell Count 4.26 M/mm3 (3.80-5.20); White Blood Cell Count 6.26 K/mm3 (4.00-11.30)
[2020-10-29 06:13] LABS: Albumin, Blood 2.6 g/dL (3.4-5.0); Anion Gap 5 mmol/L (6-16); Blood Urea Nitrogen 12 mg/dL (8-24); Bun/Creatinine Ratio 15.9 (12.0-20.0); CO2, Blood 28 mmol/L (21-32); Chloride, Blood 107 mmol/L (98-108); Creatinine, Blood 0.75 mg/dL (0.40-1.00); Glomerular Filtration Rate >60 (60-); Glucose, Blood 112 mg/dL (70-99); Magnesium, Blood 1.8 mg/dL (1.6-2.4); Phosphorus, Blood 3.2 mg/dL (2.5-4.9); Potassium, Blood 3.3 mmol/L (3.5-5.5); Sodium, Blood 140 mmol/L (136-145)
--- NOTE | 2020-10-29 11:49 | NUR ---
10/29/20- PER CHART REVIEW WITH DR. JACKSON, PT IS STABLE TO D/C BACK TO [facility] TODAY. PT WILL NEED TRANSPORT TO FACILITY. PT WILL BE PICKED UP AT 2:45 TODAY TO GO BACK HOME. LMOM FOR THE NURSE TO UPDATE HER ON TIME OF DISCHARGE AND THAT THE NURSE AT [facility] HAS ASKED THAT A REPORT BE CALLED TO [phone]. -NOLANW
--- NOTE | 2020-10-29 16:36 | NUR ---
DISCHARGE PT DISCHARGED TO [facility], WHERE PT LIVES. THIS RN CALLED REPORT TO DAMIEN AT [facility]. MEDIPORT REMOVED WITHOUT DIFFICULTY. PT TRANSFERRED TO WHEELCHAIR VAN WITH BELONGINGS. PT AMBULATORY AND DECLINED TO SIT IN WHEELCHAIR.
== END 2020-10-29 16:32 | DRG 683 ==
LOC: ER 15:33 → MEDS 15:34
PROVIDERS: Emergency Medicine; Internal Medicine; Internal Medicine Nephrology; ADMIT Internal Medicine
PROC: 30233N1 Transfusion of Nonautologous Red Blood Cells into Peripheral Vein, Percutaneous Approach (ICD-10-PCS; principal; 2020-10-25)
DX: N17.9 Acute kidney failure, unspecified (principal); K50.90 Crohn's disease, unspecified, without complications; D62 Acute posthemorrhagic anemia; E87.4 Mixed disorder of acid-base balance; E87.0 Hyperosmolality and hypernatremia; Z66 Do not resuscitate; F32.9 Major depressive disorder, single episode, unspecified; F41.9 Anxiety disorder, unspecified; G89.29 Other chronic pain; E86.0 Dehydration; M54.5 Low back pain; R82.81 Pyuria; M40.205 Unspecified kyphosis, thoracolumbar region; N20.0 Calculus of kidney; E83.42 Hypomagnesemia; E83.39 Other disorders of phosphorus metabolism; E87.6 Hypokalemia; E88.09 Other disorders of plasma-protein metabolism, not elsewhere classified; N18.9 Chronic kidney disease, unspecified; E87.8 Other disorders of electrolyte and fluid balance, not elsewhere classified; E86.9 Volume depletion, unspecified; Z98.1 Arthrodesis status; Z90.710 Acquired absence of both cervix and uterus; Z98.890 Other specified postprocedural states; Z88.5 Allergy status to narcotic agent; Z88.8 Allergy status to other drugs, medicaments and biological substances; Z95.828 Presence of other vascular implants and grafts; Z90.49 Acquired absence of other specified parts of digestive tract; Z90.3 Acquired absence of stomach [part of]; Z87.891 Personal history of nicotine dependence; Z90.722 Acquired absence of ovaries, bilateral; Z79.899 Other long term (current) drug therapy; Z79.51 Long term (current) use of inhaled steroids; Z79.52 Long term (current) use of systemic steroids
CPT/HCPCS: 36415; 36430; 36600; 71045; 74019; 76770; 80048; 80053; 80069; 81001; 82803; 83690; 83735; 83930; 84132; 85014; 85018; 85025; 86850; 86900; 86901; 86923; 87086; 92526; 92610; 93005; 93010; 96365; 96375; 96376; 97161; 97165; 99285-25; A9270; G0378; G0480; J0696; J0881; J1200; J1642; J1644; J1885; J1940; J2060; J2270; J2765; J2920; J3475; J3480; J7030; J7050; J7060; J7070; J7120; P9016

== ENCOUNTER 2021-02-17 16:13 | Observation (INO) | payer MEDICARE, OTHER ==
[~2021-02-17] VITALS: Ht 154.9 cm; Wt 45.4 kg
[~2021-02-17 16:13] MED LIST changes: +ACET250 PO; +ALLEGRA ALLERG180 MG PO; +Aspir 8181 MG PO; +BISA10S PR; +MELATONIN5 M1 PO; +POTCHL20ER PO
[2021-02-17 18:04] LABS: SARS-Cov-2 (COVID-19) PCR, MMC NEGATIVE (NEGATIVE)
[2021-02-17 19:35] LABS: BASOPHILS ABSOLUTE AUTO 0.05 K/mm3 (0.00-0.23); BASOPHILS PERCENT AUTO 1 % (0-2); EOSINOPHILS ABSOLUTE AUTO 0.11 K/mm3 (0.00-0.68); EOSINOPHILS PERCENT AUTO 2 % (0-6); Hematocrit 33.7 % (33.0-51.0); Hemoglobin 10.2 g/dL (11.5-16.0); IMMATURE GRAN ABSOLUTE AUTO 0.03 K/mm3 (0.00-0.10); IMMATURE GRAN PERCENT AUTO 0 % (0-1); LYMPHOCYTES PERCENT AUTO 17 % (21-46); MONOCYTES ABSOLUTE AUTO 0.48 K/mm3 (0.16-1.47); MONOCYTES PERCENT AUTO 6 % (4-13); Mean Corpuscular HGB 29.3 pg (26.0-34.0); Mean Corpuscular HGB Conc 30.3 g/dL (31.5-36.5); Mean Corpuscular Volume 97 fL (80-100); Mean Platelet Volume 10.3 fL (9.1-12.4); NEUTROPHILS ABSOLUTE AUTO 5.61 K/mm3 (1.96-9.15); NEUTROPHILS PERCENT AUTO 74 % (41-73); Platelet Count 337 K/mm3 (150-400); RDW Coefficient Variation 17.4 % (11.7-14.2); RDW Standard Deviation 61.7 fL (35.1-46.3); Red Blood Cell Count 3.48 M/mm3 (3.80-5.20); White Blood Cell Count 7.58 K/mm3 (4.00-11.30)
[2021-02-17 19:38] LABS: Alanine Aminotransfer (ALT/SGP 22 U/L (12-78); Albumin, Blood 2.8 g/dL (3.4-5.0); Albumin/Globulin Ratio 0.8 (0.8-1.8); Alk Phos 120 U/L (50-136); Anion Gap 8 mmol/L (6-16); Aspartate Aminotrans (AST/SGOT 18 U/L (12-37); Bilirubin, Total 0.3 mg/dL (0.1-1.0); Blood Urea Nitrogen 23 mg/dL (8-24); Bun/Creatinine Ratio 20.2 (12.0-20.0); CO2, Blood 13 mmol/L (21-32); Calcium, Blood 7.9 mg/dL (8.5-10.1); Chloride, Blood 124 mmol/L (98-108); Creatinine, Blood 1.14 mg/dL (0.40-1.00); Globulin, Blood 3.5 g/dL (2.2-4.0); Glomerular Filtration Rate 47 (60-); Glucose, Blood 86 mg/dL (70-99); Potassium, Blood 3.5 mmol/L (3.5-5.5); Sodium, Blood 145 mmol/L (136-145); Total Protein, Blood 6.3 g/dL (6.4-8.2); Troponin I <0.015 ng/mL (0.000-0.040)
[2021-02-17 20:26] LABS: Salicylate <1.7 mg/dL (2.8-20.0)
[2021-02-17 20:28] LABS: Acetaminophen, Random <2.0 ug/mL (10.0-30.0)
[2021-02-17 20:33] LABS: Base Excess Venous -17.7 mmol/L; PCO2 Venous 32.6 mmHg (38-42); PO2 Venous 156 mmHg (38-42); pH Blood Venous 7.14 (7.34-7.37)
[2021-02-17] MEDS ORDERED: DORZOLAMIDE-TIM10 ML BOTHEYES (20:46)
[2021-02-17] MEDS ORDERED: BRIMONIDINE TART5 ML BOTHEYES (20:46)
[2021-02-17] MEDS ORDERED: LOSARTAN POTASS25 M2 PO (20:46)
[2021-02-17] MEDS ORDERED: ESCITALOPRAM OXA5 MG PO (20:47)
[2021-02-17] MEDS ORDERED: ACET250 PO (20:47)
--- NOTE | 2021-02-17 23:45 | NUR ---
RECEIVED REPORT FROM PATTIEED RN. PT TRANSPORTED TO MEDICAL FLOOR VIA GURNEY, AMBULATED TO BED WITH ASSIST OF 1, STEADY GAIT. ORIENTED TO ROOM/UNIT, USE OF CALL LIGHT. VS OBTAINED, WNL. NO OTHER ACUTE NEEDS ASSESSED AT THIS TIME. CALL LIGHT, POSSESSIONS IN REACH, BED IN LOW AND LOCKED POSITION. IVF INFUSING ORDERED.
[2021-02-18 05:03] LABS: Base Excess Venous -12.4 mmol/L; Bicarbonate Venous 15.4 mmol/L (24.0-30.0); PCO2 Venous 32.5 mmHg (38-42); PO2 Venous 84.2 mmHg (38-42); pH Blood Venous 7.26 (7.34-7.37)
[2021-02-18 05:24] LABS: Bun/Creatinine Ratio 20.6 (12.0-20.0); Calcium, Blood 7.4 mg/dL (8.5-10.1); Creatinine, Blood 1.02 mg/dL (0.40-1.00); Potassium, Blood 2.8 mmol/L (3.5-5.5)
--- NOTE | 2021-02-18 06:00 | NUR ---
SHIFT SUMMARY PT RESTING, IN NAD. APPEARED TO SLEEP WELL OVERNIGHT. VS REVIEWED,WNL; BP'S STABLE. NO CARDIAC EVENTS REPORTED. LABS IMPROVING THIS AM. NO ACUTE NEEDS ASSESSED AT THIS TIME. CALL LIGHT, POSSESSIONS IN REACH, BED IN LOW AND LOCKED POSITION. WILL CONTINUE TO PROVIDE CARE NEEDED UNTIL REPORT GIVEN TO ONCOMING RN.
[2021-02-18 12:02] LABS: Percent Saturation 21.6 % (15.0-50.0)
[2021-02-18 13:45] LABS: Base Excess Venous -8.2 mmol/L; Bicarbonate Venous 18.2 mmol/L (24.0-30.0); PCO2 Venous 35.1 mmHg (38-42); PO2 Venous 57.3 mmHg (38-42); pH Blood Venous 7.32 (7.34-7.37)
[2021-02-18 14:42] LABS: Bun/Creatinine Ratio 16.5 (12.0-20.0); Calcium, Blood 7.4 mg/dL (8.5-10.1); Creatinine, Blood 1.15 mg/dL (0.40-1.00); Magnesium, Blood 2.9 mg/dL (1.6-2.4); Potassium, Blood 2.9 mmol/L (3.5-5.5)
--- NOTE | 2021-02-18 18:20 | NUR ---
Patient is admitted for metabolic acidosis, alert and oriented x3 ,able to make needs known . potassium and mag 2.9 respectively , replacement ordered and done , will continue to monitor lab. vital are signs are stable. one person assist with ADLS. Tylenol was given for abdominal pain, it was effective. continue to monitor.
[2021-02-18 20:52] LABS: Influenza A Negative (NEGATIVE); Influenza B Negative (NEGATIVE)
[2021-02-18 21:14] LABS: Bun/Creatinine Ratio 15.5 (12.0-20.0); Calcium, Blood 7.4 mg/dL (8.5-10.1); Creatinine, Blood 1.16 mg/dL (0.40-1.00); Potassium, Blood 3.3 mmol/L (3.5-5.5)
[2021-02-19 03:12] LABS: BASOPHILS ABSOLUTE AUTO 0.04 K/mm3 (0.00-0.23); BASOPHILS PERCENT AUTO 1 % (0-2); EOSINOPHILS ABSOLUTE AUTO 0.01 K/mm3 (0.00-0.68); EOSINOPHILS PERCENT AUTO 0 % (0-6); Hematocrit 27.7 % (33.0-51.0); IMMATURE GRAN ABSOLUTE AUTO 0.02 K/mm3 (0.00-0.10); IMMATURE GRAN PERCENT AUTO 0 % (0-1); LYMPHOCYTES ABSOLUTE AUTO 0.53 K/mm3 (0.84-5.20); LYMPHOCYTES PERCENT AUTO 10 % (21-46); MONOCYTES ABSOLUTE AUTO 0.21 K/mm3 (0.16-1.47); MONOCYTES PERCENT AUTO 4 % (4-13); Mean Corpuscular HGB Conc 32.5 g/dL (31.5-36.5); Mean Platelet Volume 10.2 fL (9.1-12.4); NEUTROPHILS ABSOLUTE AUTO 4.56 K/mm3 (1.96-9.15); NEUTROPHILS PERCENT AUTO 85 % (41-73); Platelet Count 301 K/mm3 (150-400); RDW Coefficient Variation 17.2 % (11.7-14.2); RDW Standard Deviation 58.4 fL (35.1-46.3); White Blood Cell Count 5.37 K/mm3 (4.00-11.30)
[2021-02-19 03:22] LABS: Mean Corpuscular Volume 92 fL (80-100)
[2021-02-19 03:38] LABS: Bun/Creatinine Ratio 15.9 (12.0-20.0); C-Reactive Protein, High Sens. 0.764 mg/L (0.000-3.000); Calcium, Blood 7.4 mg/dL (8.5-10.1); Creatinine, Blood 1.13 mg/dL (0.40-1.00); Magnesium, Blood 2.4 mg/dL (1.6-2.4); Potassium, Blood 3.5 mmol/L (3.5-5.5)
--- NOTE | 2021-02-19 11:10 | NUR ---
PER DR. IESHA ALANIS OK TO GIVE IMODIUM 2MG NOW. UNABLE TO PULL FROM PYXSIS. WILL LET RN FOR PATIENT KNOW.
--- NOTE | 2021-02-19 13:11 | NUR ---
Per chart review, pt. not yet appropriate for discharge. Pt. living at [facility] prior to admit. Provided [facility] staff with update on patient's progress. Disposition unknown at this time. Pt. has remained a one person assist throughout hospitalization. Do not anticipate difficulties in facility accepting her back when appropriate. Anticipate needs at time of discharge to include: Report called to [facility] nurse, transportation, hospital F/U within 5-7 days post discharge, potential need for outpatient GI visit.
--- NOTE | 2021-02-19 13:21 | NUR ---
ADVISED PATIENT WITH N/V AND MD TO ORDER MEDS
--- NOTE | 2021-02-19 13:22 | NUR ---
Discussed patient's care with Dr. Hall. Pt. has the potenial to discharge this evening dependent upon how she is feeling over the next few hours. Plan to update [facility]. If pt. is appropriate for discharge this evening I will arrange for transportation and schedule hospital F/U appt.
[2021-02-19] MEDS ORDERED: LOPE2C PO (15:41)
[2021-02-19] MEDS ORDERED: Prednisone10 MG PO (15:42)
--- NOTE | 2021-02-19 15:51 | NUR ---
Per Dr. Hall, pt. appropriate for discharge. Contacted [facility] to arrange for hospital discharge. Requested wheel chair van transport as it is most appropriate due to patient's level of assistance needs. Dispatcher was very insistant that the pt. be sent be taxi cab. I advised her that this would not be appropriate based on patient's need for one person assist and medical history. She then requested reasons and I provided those to both her and fertilizer supervisor. Pt. returning to [facility] with transport time of 5:15 pm. Request from facility to add OTC meds to discharge list. Facility is aware of time that pt. is returning. Will fax D/C orders and also print for facility.
--- NOTE | 2021-02-19 18:43 | NUR ---
Alert and oriented x3, Able to make needs known . Independent with ADLS. Imodium AND PHERGEN was given for nausea , it was effective. Vital signs are stable. Potassium was given and improved to 3.5 . Patient discharged to facility and discharged instruction was given and acknowldged . Left at 520 in stable condition .
== END 2021-02-19 17:24 | disposition home or self-care (01) ==
LOC: ER 16:13 → MEDS 16:14 → ER 23:38 → MEDS 23:44
PROVIDERS: Family Medicine; Physician Assistant; ADMIT Internal Medicine
DX: E87.2 Acidosis (principal); E87.8 Other disorders of electrolyte and fluid balance, not elsewhere classified; K50.90 Crohn's disease, unspecified, without complications; K52.9 Noninfective gastroenteritis and colitis, unspecified; R07.9 Chest pain, unspecified; N17.9 Acute kidney failure, unspecified; R06.02 Shortness of breath; E87.6 Hypokalemia; E83.42 Hypomagnesemia; R11.2 Nausea with vomiting, unspecified; D50.9 Iron deficiency anemia, unspecified; F03.90 Unspecified dementia, unspecified severity, without behavioral disturbance, psychotic disturbance, mood disturbance, and anxiety; Z20.822 Contact with and (suspected) exposure to COVID-19; Z87.891 Personal history of nicotine dependence; Z88.5 Allergy status to narcotic agent; Z88.8 Allergy status to other drugs, medicaments and biological substances
CPT/HCPCS: 36415; 71045; 71046; 74177; 80048; 80053; 82607; 82728; 82746; 82803; 83540; 83550; 83605; 83735; 84484; 85025; 85651; 86141; 87804; 93005; 93010; 94667; 94760; 96372; 96374; 96375; 96376; 99285-25; A9270; G0378; G0480; J1642; J1650; J1720; J2550; J3475; J7030; J7070; J7120; Q9967; U0004

== ENCOUNTER 2021-03-07 17:06 | Emergency (ER) | payer MEDICARE, OTHER ==
[~2021-03-07] VITALS: Ht 154.9 cm; Wt 54.4 kg
[~2021-03-07 17:06] MED LIST changes: +BRIMONIDINE TART5 ML BOTHEYES; +DORZOLAMIDE-TIM10 ML BOTHEYES; +ESCITALOPRAM OXA5 MG PO; +LOSARTAN POTASS25 M2 PO; +Prednisone10 MG PO
[2021-03-07 17:50] LABS: Alanine Aminotransfer (ALT/SGP 30 U/L (12-78); Albumin, Blood 3.2 g/dL (3.4-5.0); Albumin/Globulin Ratio 0.8 (0.8-1.8); Alk Phos 123 U/L (50-136); Anion Gap 6 mmol/L (6-16); Aspartate Aminotrans (AST/SGOT 24 U/L (12-37); Bilirubin, Total 0.2 mg/dL (0.1-1.0); Blood Urea Nitrogen 23 mg/dL (8-24); Bun/Creatinine Ratio 20.5 (12.0-20.0); CO2, Blood 14 mmol/L (21-32); Calcium, Blood 8.3 mg/dL (8.5-10.1); Chloride, Blood 121 mmol/L (98-108); Creatinine, Blood 1.12 mg/dL (0.40-1.00); Globulin, Blood 3.9 g/dL (2.2-4.0); Glomerular Filtration Rate 48 (60-); Glucose, Blood 95 mg/dL (70-99); Sodium, Blood 141 mmol/L (136-145); Total Protein, Blood 7.1 g/dL (6.4-8.2); Troponin I <0.015 ng/mL (0.000-0.040)
[2021-03-07 18:40] LABS: BASOPHILS ABSOLUTE AUTO 0.05 K/mm3 (0.00-0.23); BASOPHILS PERCENT AUTO 1 % (0-2); EOSINOPHILS ABSOLUTE AUTO 0.21 K/mm3 (0.00-0.68); EOSINOPHILS PERCENT AUTO 3 % (0-6); Hematocrit 36.8 % (33.0-51.0); Hemoglobin 11.4 g/dL (11.5-16.0); IMMATURE GRAN ABSOLUTE AUTO 0.02 K/mm3 (0.00-0.10); IMMATURE GRAN PERCENT AUTO 0 % (0-1); LYMPHOCYTES ABSOLUTE AUTO 1.39 K/mm3 (0.84-5.20); LYMPHOCYTES PERCENT AUTO 20 % (21-46); MONOCYTES ABSOLUTE AUTO 0.59 K/mm3 (0.16-1.47); MONOCYTES PERCENT AUTO 8 % (4-13); Mean Corpuscular HGB 29.5 pg (26.0-34.0); Mean Corpuscular Volume 95 fL (80-100); Mean Platelet Volume 10.1 fL (9.1-12.4); NEUTROPHILS ABSOLUTE AUTO 4.87 K/mm3 (1.96-9.15); NEUTROPHILS PERCENT AUTO 68 % (41-73); Platelet Count 326 K/mm3 (150-400); RDW Coefficient Variation 14.2 % (11.7-14.2); RDW Standard Deviation 49.7 fL (35.1-46.3); Red Blood Cell Count 3.86 M/mm3 (3.80-5.20); White Blood Cell Count 7.13 K/mm3 (4.00-11.30)
[2021-03-07 19:13] LABS: Bicarbonate Venous 12.4 mmol/L (24.0-30.0); PCO2 Venous 37.9 mmHg (38-42); PO2 Venous 73.2 mmHg (38-42); pH Blood Venous 7.12 (7.34-7.37)
== END 2021-03-07 21:05 | disposition home or self-care (01) ==
LOC: ER 17:06
PROVIDERS: Emergency Medicine
DX: J06.9 Acute upper respiratory infection, unspecified (principal); K52.9 Noninfective gastroenteritis and colitis, unspecified; E87.2 Acidosis; D50.9 Iron deficiency anemia, unspecified; Z88.8 Allergy status to other drugs, medicaments and biological substances; Z88.5 Allergy status to narcotic agent; Z79.52 Long term (current) use of systemic steroids; Z79.899 Other long term (current) drug therapy
CPT/HCPCS: 36415; 71045; 80053; 82803; 83880; 84484; 85025; 93005; 93010; 99285-25

== ENCOUNTER 2021-05-13 15:53 | Emergency (ER) | payer MEDICARE, OTHER ==
[~2021-05-13] VITALS: Ht 154.9 cm; Wt 53.5 kg
[2021-05-13 18:10] LABS: BASOPHILS ABSOLUTE AUTO 0.05 K/mm3 (0.00-0.23); BASOPHILS PERCENT AUTO 1 % (0-2); EOSINOPHILS ABSOLUTE AUTO 0.09 K/mm3 (0.00-0.68); EOSINOPHILS PERCENT AUTO 1 % (0-6); Hematocrit 28.2 % (33.0-51.0); Hemoglobin 8.9 g/dL (11.5-16.0); IMMATURE GRAN ABSOLUTE AUTO 0.07 K/mm3 (0.00-0.10); IMMATURE GRAN PERCENT AUTO 1 % (0-1); LYMPHOCYTES ABSOLUTE AUTO 1.44 K/mm3 (0.84-5.20); LYMPHOCYTES PERCENT AUTO 20 % (21-46); MONOCYTES ABSOLUTE AUTO 0.53 K/mm3 (0.16-1.47); MONOCYTES PERCENT AUTO 8 % (4-13); Mean Corpuscular HGB 29.7 pg (26.0-34.0); Mean Corpuscular HGB Conc 31.6 g/dL (31.5-36.5); Mean Corpuscular Volume 94 fL (80-100); Mean Platelet Volume 10.3 fL (9.1-12.4); NEUTROPHILS PERCENT AUTO 69 % (41-73); Platelet Count 300 K/mm3 (150-400); RDW Coefficient Variation 15.7 % (11.7-14.2); RDW Standard Deviation 54.1 fL (35.1-46.3); White Blood Cell Count 7.08 K/mm3 (4.00-11.30)
[2021-05-13 18:30] LABS: Alanine Aminotransfer (ALT/SGP 20 U/L (12-78); Albumin, Blood 2.3 g/dL (3.4-5.0); Albumin/Globulin Ratio 0.8 (0.8-1.8); Alk Phos 90 U/L (50-136); Anion Gap 6 mmol/L (6-16); Aspartate Aminotrans (AST/SGOT 15 U/L (12-37); Bilirubin, Total 0.2 mg/dL (0.1-1.0); Blood Urea Nitrogen 23 mg/dL (8-24); Bun/Creatinine Ratio 27.7 (12.0-20.0); CO2, Blood 16 mmol/L (21-32); Chloride, Blood 121 mmol/L (98-108); Creatinine, Blood 0.83 mg/dL (0.40-1.00); Glomerular Filtration Rate >60 (60-); Glucose, Blood 89 mg/dL (70-99); Potassium, Blood 3.6 mmol/L (3.5-5.5); Sodium, Blood 143 mmol/L (136-145); Total Protein, Blood 5.3 g/dL (6.4-8.2); Troponin I 0.027 ng/mL (0.000-0.040)
== END 2021-05-13 20:30 | disposition home or self-care (01) ==
LOC: ER 15:53
PROVIDERS: Family Medicine
DX: R07.9 Chest pain, unspecified (principal); R06.02 Shortness of breath; Z87.891 Personal history of nicotine dependence
CPT/HCPCS: 71046; 80053; 83880; 84484; 85025; 93005; 93010; 99285-25; J1642

== ENCOUNTER 2021-09-15 16:55 | Inpatient (IN) | payer MEDICARE, OTHER ==
[~2021-09-15] VITALS: Ht 154.9 cm; Wt 36.8 kg
[2021-09-15 18:04] LABS: BASOPHILS ABSOLUTE AUTO 0.04 K/mm3 (0.00-0.23); BASOPHILS PERCENT AUTO 0 % (0-2); EOSINOPHILS ABSOLUTE AUTO 0.06 K/mm3 (0.00-0.68); EOSINOPHILS PERCENT AUTO 1 % (0-6); Hematocrit 43.6 % (33.0-51.0); Hemoglobin 13.9 g/dL (11.5-16.0); IMMATURE GRAN ABSOLUTE AUTO 0.05 K/mm3 (0.00-0.10); IMMATURE GRAN PERCENT AUTO 1 % (0-1); LYMPHOCYTES ABSOLUTE AUTO 1.88 K/mm3 (0.84-5.20); LYMPHOCYTES PERCENT AUTO 18 % (21-46); MONOCYTES PERCENT AUTO 10 % (4-13); Mean Corpuscular HGB 28.8 pg (26.0-34.0); Mean Corpuscular HGB Conc 31.9 g/dL (31.5-36.5); Mean Corpuscular Volume 90 fL (80-100); Mean Platelet Volume 10.8 fL (9.1-12.4); NEUTROPHILS ABSOLUTE AUTO 7.39 K/mm3 (1.96-9.15); NEUTROPHILS PERCENT AUTO 71 % (41-73); Platelet Count 384 K/mm3 (150-400); RDW Coefficient Variation 16.5 % (11.7-14.2); RDW Standard Deviation 55.2 fL (35.1-46.3); Red Blood Cell Count 4.83 M/mm3 (3.80-5.20); White Blood Cell Count 10.42 K/mm3 (4.00-11.30)
[2021-09-15 18:41] LABS: CHOL/HDL RATIO 2.1; Cholesterol 153 mg/dL (50-200); HDL Cholesterol 72 mg/dL (>39); LDL/HDL RATIO 0.8; Low Density Lipoprotein Chol 61 mg/dL (0-110); Magnesium, Blood 2.4 mg/dL (1.6-2.4); Triglycerides 102 mg/dL (30-160); Very Low Density Lipoprot Chol 20 mg/dL (6-32)
[2021-09-15 18:47] LABS: Albumin, Blood 3.3 g/dL (3.4-5.0); Albumin/Globulin Ratio 0.8 (0.8-1.8); Bilirubin, Total 0.5 mg/dL (0.1-1.0); Bun/Creatinine Ratio 16.4 (12.0-20.0); Calcium, Blood 10.2 mg/dL (8.5-10.1); Creatinine, Blood 1.4 mg/dL (0.40-1.00); Globulin, Blood 4.4 g/dL (2.2-4.0); Potassium, Blood 3.9 mmol/L (3.5-5.5); Total Protein, Blood 7.7 g/dL (6.4-8.2)
--- NOTE | 2021-09-16 01:19 | NUR ---
RECIEVED REPORT FROM EGG SMELLER, PATIENT TO ROOM FROM [facility]ER AT 1920. RIGHT GROIN SHEATH IN PLACE WITH TEGADERM CHG, SITE WNL, NO HEMATOMA, PULSES AND SENSATION IN LOWER EXTREMETIES. PATIENT IS ALERT AND ORIENTED X3, FORGETFULL AND UNSURE OF YEAR. 02 SATS 99% ON RA, PATIENT STATES SHE DOES FEEL SOB AT TIMES. HR SR 60s-70s, SOME CHEST PAIN THAT SHE SAYS IS IMPROVING. EKG DONE POST PROCEDURE. BP HYPOTENSIVE THROUGH THE NIGHT, DR. LEES AWARE, USING SHEATH ARTERIAL LINE, MAP REMAINS ABOVE 60. ORDERS TO PULL SHEATH ONCE PTT IS LOW ENOUGH, CRITICALLY HIGH AT THIS TIME, DR FELIZ, WILL REDRAW AT 0300. PATIENT NEEDS CONSTANT REMINDER NOT TO BEND HER LEGS. SHIFTS HER HIPS INDEPENDENTLY. CALL LIGHT IN REACH.
[2021-09-16 03:49] LABS: BASOPHILS ABSOLUTE AUTO 0.03 K/mm3 (0.00-0.23); BASOPHILS PERCENT AUTO 0 % (0-2); EOSINOPHILS ABSOLUTE AUTO 0.03 K/mm3 (0.00-0.68); EOSINOPHILS PERCENT AUTO 0 % (0-6); Hematocrit 34.1 % (33.0-51.0); IMMATURE GRAN ABSOLUTE AUTO 0.04 K/mm3 (0.00-0.10); IMMATURE GRAN PERCENT AUTO 1 % (0-1); LYMPHOCYTES ABSOLUTE AUTO 1.14 K/mm3 (0.84-5.20); LYMPHOCYTES PERCENT AUTO 15 % (21-46); MONOCYTES ABSOLUTE AUTO 0.87 K/mm3 (0.16-1.47); MONOCYTES PERCENT AUTO 11 % (4-13); Mean Corpuscular HGB Conc 32.3 g/dL (31.5-36.5); Mean Corpuscular Volume 90 fL (80-100); Mean Platelet Volume 10.8 fL (9.1-12.4); NEUTROPHILS PERCENT AUTO 73 % (41-73); Platelet Count 278 K/mm3 (150-400); RDW Coefficient Variation 16.3 % (11.7-14.2); Red Blood Cell Count 3.79 M/mm3 (3.80-5.20); White Blood Cell Count 7.81 K/mm3 (4.00-11.30)
[2021-09-16 04:21] LABS: Calcium, Blood 9.1 mg/dL (8.5-10.1); Creatinine, Blood 1.1 mg/dL (0.40-1.00); Potassium, Blood 2.9 mmol/L (3.5-5.5)
--- NOTE | 2021-09-16 05:26 | NUR ---
RIGHT GROIN SHEATH REMOVED, PRESSURE HELD FOR 20 MINUTES, QUENTIN DRESSING IN PLACE. NO HEMATOMA AT THIS TIME
--- NOTE | 2021-09-16 06:19 | NUR ---
SHIFT SUMMARY PATIENT IS ALERT AND ORIENTED X3, FORGETFULL AND UNABLE TO STATE THE YEAR. 02 SATS 99% ON RA, DENIES SOB, LS CLEAR. HR SR @60s, BP HYPOTENSIVE, MAP >60, DR AWARE. SHEATH REMOVED THIS AM, SEE PREVIOUS NOTE, SITE WNL, DRESSING C/D/I. PATIENT DENIES CP AT THIS TIME. AM EKG COMPLETE. POTASSIUM REPLACED AND REPEAT LABS ORDERED. PATIENT SHIFTS HIPS IN BED. CALL LIGHT IN REACH
[2021-09-16 09:46] LABS: Calcium, Blood 9.5 mg/dL (8.5-10.1); Creatinine, Blood 1.1 mg/dL (0.40-1.00); Potassium, Blood 3.5 mmol/L (3.5-5.5)
--- NOTE | 2021-09-16 13:19 | NUR ---
Echocardiogram using 0.50ml of Definity contrast performed.
[2021-09-16 16:15] LABS: Anti-Xa UFH, PHA Monitoring <0.10 IU/mL; International Normalized Ratio 0.98; Prothrombin Time Results 10.3 Sec (9.7-11.5)
--- NOTE | 2021-09-16 17:34 | NUR ---
SHIFT SUMMARY NO ACUTE CHANGES THIS SHIFT. PT HAS SLEPT FOR MOST OF THE DAY. PT AWAKENS EASILY AND IS ALERT AND ORIENTED WHEN AWAKE. PT IS FORGETFUL AT TIMES. PT DENIES PAIN OR DISCOMFORT. VITAL SIGNS HAVE REMAINED STABLE. PT HYPOTENSIVE THROUGHOUT THE SHIFT WITH MAP >60. PT WITH ONE LIQUID MAROON STOOL/VOID ON BEDPAN THIS SHIFT. DR LEES AWARE. PT STARTED ON HEPARIN GTT THIS EVENING AT 15 UNITS/KG/HR. PT WITH POOR APPETITE. WILL CONTINUE TO MONITOR AND REPORT OFF TO ONCOMING RN.
--- NOTE | 2021-09-16 19:32 | NUR ---
ASSUMED CARE AT 1900 PATIENT IS ALERT AND ORIENTED X3, UNABLE TO STATE YEAR/MONTH AND IS FORGETFUL, ORIENTED OTHERWISE. 02 SATS 99% ON RA, LS CLEAR, DENIES SOB. HR SR 60s-70s, BP STABLE WITH MAP >65. DENIES CP/PRESSURE AT THIS TIME. HEPARIN IS INF, VERIFIED RATE WITH EMAR. DRESSING TO RIGHT GROIN SITE C/D/I AND WNL. PATIENT USES BEDPAN TO URINATE, URINE IS BROWN/MAROON COLORED. PATIENT STATES SHE IS HAVING SOME ABDOMINAL TENDERNESS. REPOSITIONS SELF IN BED. CALL LIGHT IN REACH, BED ALARM ON. SEE SHIFT ASSESSMENT FOR MORE DETAIL.
[2021-09-17 06:06] LABS: Hematocrit 35.2 % (33.0-51.0); Hemoglobin 11.1 g/dL (11.5-16.0); Mean Corpuscular HGB 28.6 pg (26.0-34.0); Mean Corpuscular HGB Conc 31.5 g/dL (31.5-36.5); Mean Corpuscular Volume 91 fL (80-100); Mean Platelet Volume 10.7 fL (9.1-12.4); Platelet Count 327 K/mm3 (150-400); RDW Coefficient Variation 16.8 % (11.7-14.2); RDW Standard Deviation 56.2 fL (35.1-46.3); Red Blood Cell Count 3.88 M/mm3 (3.80-5.20); White Blood Cell Count 8.27 K/mm3 (4.00-11.30)
--- NOTE | 2021-09-17 06:22 | NUR ---
SHIFT SUMMARY PATIENT SLEPT MOST THE NIGHT. NO NEURO CHANGES. HEPARIN INF, TITRATED UP PER PHARMACY. PATIENTS URINE REMAINS BROW/MAROON COLORED. NO BM THIS SHIFT. VSS, NO ACUTE CHANGES. CALL LIGHT IN REACH.
[2021-09-17 06:28] LABS: Bun/Creatinine Ratio 18.3 (12.0-20.0); Calcium, Blood 9.1 mg/dL (8.5-10.1); Creatinine, Blood 1.15 mg/dL (0.40-1.00)
--- NOTE | 2021-09-17 17:36 | NUR ---
SHIFT SUMMARY: PT SLEPT ON AND OFF A MAJORITY OF THE DAY. A&OX3. FORGETFUL AT TIMES. PT ON RA SATING ABOVE 95%. HR SINUS RHYTHYM 80-90. HEPARING INFUSING AT 16UNITS/KG/HR. PT HAD NO COMPLAINTS OF CHEST PAIN OR SOB THROUGHOUT THE DAY. PT HAVING BROWM LIQUID STOOL. CONT OF URINE. REPOS IND IN BED. CALL LIGHT IN REACH. WILL CONTINUE TO MONITOR AND REPORT TO ONCOMING RN.
--- NOTE | 2021-09-17 20:28 | NUR ---
ASSUMED CARE AT 1900 PATIENT IS ALERT AND ORIENTED X3. UNABLE TO STATE YEAR/MONTH, ORIENTED OTHERWISE. 02 SATS 98% ON RA, LS CLEAR, DENIES SOB. BP STABLE, HR SR @90s. PATIENT COMPLAINS OF SLIGHT ABDOMINAL DISCOMFORT. PER DAYSHIFT PATIENT HAVING SEVERAL LOOSE BMs. INDEPENDENT WITH REPOSITIONING. CALL LIGHT IN REACH.
[2021-09-18 04:34] LABS: Source, Urine Clean Catch
[2021-09-18 04:39] LABS: Blood, Urine 5+ (Neg); Glucose Qualitative, Urine Neg (Neg); Ketones, Urine 2+ (Neg); Leukocyte Esterase, Urine 3+ (Neg); Nitrite, Urine Neg (Neg); Protein, Urine 3+ (Neg); Urobilinogen, Urine NORM (Normal)
[2021-09-18 04:49] LABS: Hematocrit 35.2 % (33.0-51.0); Hemoglobin 11.2 g/dL (11.5-16.0); Mean Corpuscular HGB 28.9 pg (26.0-34.0); Mean Corpuscular HGB Conc 31.8 g/dL (31.5-36.5); Mean Corpuscular Volume 91 fL (80-100); Mean Platelet Volume 10.5 fL (9.1-12.4); Platelet Count 355 K/mm3 (150-400); RDW Standard Deviation 56.7 fL (35.1-46.3); Red Blood Cell Count 3.87 M/mm3 (3.80-5.20); White Blood Cell Count 10.87 K/mm3 (4.00-11.30)
[2021-09-18 04:51] LABS: Appearance, Urine Cloudy (Clear); Bilirubin, Urine 1+ (Neg); Color, Urine Brown (P-Yellow)
[2021-09-18 05:00] LABS: Bacteria Mod /hpf; Red Blood Cells, Urine TNTC /hpf (0-2); Squamous Epithelial Cells Rare /hpf (Few); White Blood Cells, Urine 25-50 /hpf (0-5)
[2021-09-18 05:06] LABS: Bun/Creatinine Ratio 16.2 (12.0-20.0); Calcium, Blood 9.3 mg/dL (8.5-10.1); Creatinine, Blood 1.3 mg/dL (0.40-1.00); Potassium, Blood 3.6 mmol/L (3.5-5.5)
--- NOTE | 2021-09-18 05:20 | NUR ---
SHIFT SUMMARY PATIENT REMAINS ALERT AND ORIENTED X3. 02 SATS 98% ON RA. HR NSR, BP STABLE. HEPARIN DRIP INF. PATIENT USES BEDPAN, NO BM THIS SHIFT AND UA SENT TO LAB. STILL REPORTS SOME ABDOMINAL TENDERNESS. NO ACUTE CHANGES. CALL LIGHT IN REACH.
--- NOTE | 2021-09-18 08:12 | NUR ---
PATIENT CULRED UP SLEEPING, TELE 89 HEART RATE, 100% SATS, RESPS, 20, BP 94/70, WCTM, CALL LIGHT WITH IN REACH
--- NOTE | 2021-09-18 18:41 | NUR ---
PATIENT WAKES EASILY AND THEN BACK TO BED, POOR APPETITE, ALERT AND ORIENTED. RESIDENT AT [facility], DR DILLON CONSULTED AND TO ROUND ON PATIENT THIS EVENING. HEPARIN GTT INFUSING 12.2 ML/HR 16 MCG, NEXT PTT IN THE AM. 97% ON RA, RESPIRATIONS 24, HEART RATE 80 NSR, SBP HYPOTENSIVE 90-110, HELD LOPRESSOR TODAY. PATIENT REFUSING TO REPOSITION TO HER LEFT. REPOSITIONED WITH PILLOWS THROUGH THE DAY AND PATIENT CONTINUED TO LAY ON HER RIGHT SIDE, CONITNIENT, USES BED LOGAN, WATERY LOOSE STOOL ALFREDO. VOIDS IN BEDPAN. WILL RELAY TO PM RNSEBASTIEN
--- NOTE | 2021-09-18 19:20 | NUR ---
PT IS ALERT AND ORIENTED, PLEASENT. REQUESTED BEDPAN AND VOIDED W/OUT DIFFICUTLY. VSS AT TIME OF ASSESSMENT. NO S/S OF ACUTE DISTRESS NOTED AND NO COMPLAINTS OR NEEDS EXPRESSED AT THIS TIME.
[2021-09-19 04:39] LABS: Hematocrit 31.1 % (33.0-51.0); Mean Corpuscular HGB 28.7 pg (26.0-34.0); Mean Corpuscular HGB Conc 32.2 g/dL (31.5-36.5); Mean Corpuscular Volume 89 fL (80-100); Mean Platelet Volume 10.6 fL (9.1-12.4); Platelet Count 316 K/mm3 (150-400); RDW Coefficient Variation 16.7 % (11.7-14.2); RDW Standard Deviation 54.5 fL (35.1-46.3); Red Blood Cell Count 3.48 M/mm3 (3.80-5.20); White Blood Cell Count 5.69 K/mm3 (4.00-11.30)
[2021-09-19 05:06] LABS: Bun/Creatinine Ratio 16.3 (12.0-20.0); Calcium, Blood 8.8 mg/dL (8.5-10.1); Creatinine, Blood 1.41 mg/dL (0.40-1.00)
--- NOTE | 2021-09-19 06:11 | NUR ---
SHIFT SUMMERY PT HAD AN UNEVENTFUL NIGHT. SHE IS ALERT AND ORIENTED, ABLE TO MAKE NEEDS KNOWN, CONTINENT OF URINE, ON ROOM AIR-SR ON THE MONITOR AND BP WNL. SHE HAD NO COMPLAINTS OF CHEST PAIN/PRESSURE OVERNIGHT. SHE HAD NO BOWEL MOVTS. HEPARIN GTT INFUSING PER ORDER.
[2021-09-19] MEDS ORDERED: ELIQUIS5 M2 PO (09:25)
[2021-09-19] MEDS ORDERED: ATOR40TA PO (09:27)
[2021-09-19] MEDS ORDERED: CLOP75 PO (09:28)
[2021-09-19] MEDS ORDERED: NITR.4SL SL (09:28)
--- NOTE | 2021-09-19 12:59 | NUR ---
1245 PATIENT DISCHARGED VIA [facility] TO [facility], REPORT GIVEN TO MITESH AT [facility] AND PATIENT, PATIENT ALERT BUT NOT ORIENTED TO PLACE OR OTHERS, PLEASANT O ALL CARE PROVIDED
== END 2021-09-19 12:45 | disposition home or self-care (01) | DRG 247 ==
LOC: ER 16:55 → EDBEDREQ 19:34 → ICUW 19:43
PROVIDERS: Internal Medicine Cardiovascular Disease; Student in an Organized Health Care Education/Training Program; ADMIT Internal Medicine Interventional Cardiology
PROC: 027035Z Dilation of Coronary Artery, One Artery with Two Drug-eluting Intraluminal Devices, Percutaneous Approach (ICD-10-PCS; principal; 2021-09-15)
PROC: B2111ZZ Fluoroscopy of Multiple Coronary Arteries using Low Osmolar Contrast (ICD-10-PCS; 2021-09-15)
DX: I21.09 ST elevation (STEMI) myocardial infarction involving other coronary artery of anterior wall (principal); K50.011 Crohn's disease of small intestine with rectal bleeding; L88 Pyoderma gangrenosum; N17.9 Acute kidney failure, unspecified; D63.1 Anemia in chronic kidney disease; I95.9 Hypotension, unspecified; F03.90 Unspecified dementia, unspecified severity, without behavioral disturbance, psychotic disturbance, mood disturbance, and anxiety; I51.3 Intracardiac thrombosis, not elsewhere classified; D50.9 Iron deficiency anemia, unspecified; I12.9 Hypertensive chronic kidney disease with stage 1 through stage 4 chronic kidney disease, or unspecified chronic kidney disease; N18.30 Chronic kidney disease, stage 3 unspecified; G89.29 Other chronic pain; M54.9 Dorsalgia, unspecified; E55.9 Vitamin D deficiency, unspecified; M81.0 Age-related osteoporosis without current pathological fracture; E87.6 Hypokalemia; H40.9 Unspecified glaucoma; F32.A Depression, unspecified; M40.209 Unspecified kyphosis, site unspecified; F41.9 Anxiety disorder, unspecified; B96.20 Unspecified Escherichia coli [E. coli] as the cause of diseases classified elsewhere; Z90.710 Acquired absence of both cervix and uterus; Z90.49 Acquired absence of other specified parts of digestive tract; Z98.1 Arthrodesis status; Z98.890 Other specified postprocedural states; Z86.73 Personal history of transient ischemic attack (TIA), and cerebral infarction without residual deficits; Z86.711 Personal history of pulmonary embolism; Z86.718 Personal history of other venous thrombosis and embolism; Z88.5 Allergy status to narcotic agent; Z88.8 Allergy status to other drugs, medicaments and biological substances; Z79.02 Long term (current) use of antithrombotics/antiplatelets; Z79.899 Other long term (current) drug therapy
CPT/HCPCS: 36415; 76937; 80048; 80053; 80061; 81001; 83735; 84484; 85025; 85027; 85347; 85520; 85610; 85730; 86850; 86900; 86901; 87077; 87086; 87186; 93005; 93010; 93454; 96374; 99152; 99153; 99285-25; A9270; C1725; C1751; C1769; C1874; C1887; C1894; C8929; C9600; C9606; J1644; J2250; J3010; J7030; J7040; Q9957; Q9967

== ENCOUNTER → 2021-10-23 | Outpatient (CLI) | payer MEDICARE, OTHER ==
[~2021-10-23] MED LIST changes: +ATOR40TA PO; +CLOP75 PO; +ELIQUIS5 M2 PO; +NITR.4SL SL
[2021-10-23 15:08] LABS: Source, Urine Voided
[2021-10-23 16:01] LABS: Appearance, Urine Cloudy (Clear); Bilirubin, Urine Neg (Neg); Blood, Urine 5+ (Neg); Color, Urine Amber (P-Yellow); Glucose Qualitative, Urine Neg (Neg); Ketones, Urine Neg (Neg); Leukocyte Esterase, Urine 3+ (Neg); Nitrite, Urine Neg (Neg); Protein, Urine 3+ (Neg); Specific Gravity, Urine 1.015 (1.003-1.022); Urobilinogen, Urine NORM (Normal)
[2021-10-23 16:14] LABS: Bacteria Many /hpf; Red Blood Cells, Urine TNTC /hpf (0-2); Squamous Epithelial Cells Few /hpf (Few); White Blood Cells, Urine 25-50 /hpf (0-5)
== END | disposition home or self-care (01) ==
LOC: LAB 15:06 → LAB SHORT 15:06
PROVIDERS: Family Medicine
DX: N39.0 Urinary tract infection, site not specified (principal)
CPT/HCPCS: 81001; 87086

== ENCOUNTER → 2021-10-26 | Outpatient (CLI) | payer MEDICARE, OTHER ==
[2021-10-26 15:11] LABS: Source, Urine Voided
[2021-10-26 15:50] LABS: Appearance, Urine Hazy (Clear); Bilirubin, Urine Neg (Neg); Blood, Urine 5+ (Neg); Color, Urine Yellow (P-Yellow); Glucose Qualitative, Urine Neg (Neg); Ketones, Urine Neg (Neg); Leukocyte Esterase, Urine 1+ (Neg); Nitrite, Urine Neg (Neg); Protein, Urine 3+ (Neg); Urobilinogen, Urine NORM (Normal)
[2021-10-26 16:25] LABS: Bacteria Mod /hpf; Red Blood Cells, Urine TNTC /hpf (0-2); Squamous Epithelial Cells Few /hpf (Few)
== END | disposition home or self-care (01) ==
LOC: LAB SHORT 15:10 → LAB 15:10
PROVIDERS: Family Medicine
DX: N39.0 Urinary tract infection, site not specified (principal)
CPT/HCPCS: 81001; 87086

== ENCOUNTER → 2022-03-26 | Outpatient (CLI) | payer MEDICARE, OTHER ==
[2022-03-26 10:17] LABS: Bun/Creatinine Ratio 29.1 (12.0-20.0); Calcium, Blood 7.8 mg/dL (8.5-10.1); Creatinine, Blood 0.79 mg/dL (0.40-1.00); Potassium, Blood 3.9 mmol/L (3.5-5.5)
== END | disposition home or self-care (01) ==
LOC: LAB SHORT 08:47 → LAB 08:47
PROVIDERS: Family Medicine
DX: E87.6 Hypokalemia (principal)
CPT/HCPCS: 80048

== ENCOUNTER 2023-01-06 18:13 | Observation (INO) | payer MEDICARE, OTHER ==
[~2023-01-06] VITALS: Ht 154.9 cm; Wt 32.3 kg
[~2023-01-06 18:13] MED LIST changes: +ESCI10 PO; -ESCITALOPRAM OXA5 MG PO
[2023-01-06 20:05] LABS: Influenza A, PCR NEGATIVE (NEGATIVE); Influenza B, PCR NEGATIVE (NEGATIVE); Resp Syncytial Virus, PCR NEGATIVE (NEGATIVE); SARS-Cov-2 (COVID-19) PCR, MMC NEGATIVE (NEGATIVE)
[2023-01-06 20:48] LABS: BASOPHILS ABSOLUTE AUTO 0.06 K/mm3 (0.00-0.23); BASOPHILS PERCENT AUTO 1 % (0-2); EOSINOPHILS ABSOLUTE AUTO 0.08 K/mm3 (0.00-0.68); EOSINOPHILS PERCENT AUTO 1 % (0-6); Hemoglobin 8.9 g/dL (11.5-16.0); IMMATURE GRAN ABSOLUTE AUTO 0.01 K/mm3 (0.00-0.10); IMMATURE GRAN PERCENT AUTO 0 % (0-1); LYMPHOCYTES ABSOLUTE AUTO 1.43 K/mm3 (0.84-5.20); LYMPHOCYTES PERCENT AUTO 24 % (21-46); MONOCYTES ABSOLUTE AUTO 0.65 K/mm3 (0.16-1.47); MONOCYTES PERCENT AUTO 11 % (4-13); Mean Corpuscular HGB 25.3 pg (26.0-34.0); Mean Corpuscular HGB Conc 29.7 g/dL (31.5-36.5); Mean Corpuscular Volume 85 fL (80-100); Mean Platelet Volume 11.3 fL (9.1-12.4); NEUTROPHILS ABSOLUTE AUTO 3.75 K/mm3 (1.96-9.15); NEUTROPHILS PERCENT AUTO 63 % (41-73); Platelet Count 313 K/mm3 (150-400); RDW Coefficient Variation 19.9 % (11.7-14.2); RDW Standard Deviation 60.8 fL (35.1-46.3); Red Blood Cell Count 3.52 M/mm3 (3.80-5.20); White Blood Cell Count 5.98 K/mm3 (4.00-11.30)
[2023-01-06 21:09] LABS: International Normalized Ratio 1.14; Prothrombin Time Results 11.9 Sec (9.7-11.5)
[2023-01-06 21:17] LABS: Source, Urine Clean Catch
[2023-01-06 21:20] LABS: Appearance, Urine Hazy (Clear); Bilirubin, Urine Neg (Neg); Blood, Urine 5+ (Neg); Color, Urine Amber (P-Yellow); Glucose Qualitative, Urine Neg (Neg); Ketones, Urine Neg (Neg); Leukocyte Esterase, Urine 2+ (Neg); Nitrite, Urine Neg (Neg); Protein, Urine 2+ (Neg); Urobilinogen, Urine NORM (Normal)
[2023-01-06 21:20] LABS: Albumin, Blood 2.5 g/dL (3.4-5.0); Albumin/Globulin Ratio 0.8 (0.8-1.8); Bilirubin, Total 0.3 mg/dL (0.1-1.0); Calcium, Blood 7.8 mg/dL (8.5-10.1); Creatinine, Blood 1.04 mg/dL (0.40-1.00); Globulin, Blood 3.3 g/dL (2.2-4.0); Magnesium, Blood 1.8 mg/dL (1.6-2.4); Phosphorus, Blood 3.6 mg/dL (2.5-4.9); Potassium, Blood 4.3 mmol/L (3.5-5.5); Thyroid Stimulating Hormone 4.68 uIU/mL (0.360-4.800); Total Protein, Blood 5.8 g/dL (6.4-8.2)
[2023-01-06 21:40] LABS: Bacteria Mod /hpf; Red Blood Cells, Urine TNTC /hpf (0-2); Squamous Epithelial Cells Few /hpf (Few); White Blood Cells, Urine 0-2 /hpf (0-5)
[2023-01-07 01:10] VITALS: BP 101/72
--- NOTE | 2023-01-07 01:49 | NUR ---
ADMIT NOTE 67 YR OLD FEMALE ADMITTED TO FLOOR FROM THE ED WITH DX OF HYPOTENSION. ED RN REPORTED PT WAS RECEIVED FROM [facility]. VOICED DIFFICULTIES WITH SWALLOWING, AND SOB WITH AMBULATION, BUT NO NOTED DIFFICULTIES WHILE IN THE ED. BP LOW, 94/63, BOLUS OF NS GIVEN - SEE MAR, AND WAS SENT TO FLOOR. ON ARRIVAL VS TAKEN. BP 101/72. PLACED ON TELE. SINUS ANNIE. ALERT AND ORIENTED. INSTRUCTED ON USE OF CALL LIGHT. CALL LIGHT IN REACH. HOB ELEVATED. DENIED DISTRESS. WILL CONTINUE TO MONITOR. IVF ON NS INFUSING AT 100 ML/HR.
[2023-01-07] MEDS ORDERED: ACET250 PO (02:25)
--- NOTE | 2023-01-07 03:20 | NUR ---
ACOUSTICAL LOGGING ENGINEER SUMMARY ADMITTED TO FLOOR EARLIER THIS SHIFT WITH DX OF HYPOTENSION. ALERT AND OREINTED. VSS. IVF INFUSING AT 100 ML/HR. BP WNL. CALL LIGHT IN REACH. NO NOTED S/S ACUTE DISTRESS. HAS BEEN RESTING QUIETLY WITH FEW INTERRUPTIONS. WILL CONTINUE TO MONITOR
[2023-01-07 07:30] VITALS: BP 110/62
--- NOTE | 2023-01-07 15:21 | NUR ---
PT LEFT AMA. PT STATED SHE COULD "DO THIS AT HOME" AND CONTINUE GETTING BETTER. PT ADVISED THAT SHE STILL HAD AN ECHO THAT NEEDED TO BE DONE. PT STATED SHE'S HAD HER HEART LOOKED AT MANY TIMES AND THAT SHE DIDN'T NEED ANOTHER ONE. ASKED PT IF THERE WAS ANYTHNIG THAT I COULD DO THAT MIGHT MAKE HER WANT TO STAY. PT STILL INSISTED THAT SHE WANTED TO LEAVE NOW. PT PULLED TELE STICKERS AND IV OUT WHILD THIS NURSE WAS NOTIFYING DOCTOR. IV INTACT AND IV SITE WAS WRAPPED WITH GUAZE AND COBAN. THIS NURSE CALLED [facility] TO INFORM THEM THAT PT WAS LEAVING AMA. [facility] STATED THEY HAD NO TRANSPORTATION AVAILABLE AND PT DIDN'T HAVE FUND WITH THE MANOR FOR A RIDE. [facility] AND WAS ABLE TO SCHEDULE A TAXI. PT HELPED TO DRESS. ALL BELONGINGS SENT WITH PT. THIS NURSE WALKED WITH PT DOWN TO WAITING AREA TO WAIT FOR TAXI.
== END 2023-01-07 12:59 | disposition left against medical advice (07) ==
LOC: ER 18:13 → MEDS 18:14 → ER 01-07 00:50 → MEDS 01-07 01:09 → ENPENDDIS 01-07 12:50 → MEDS 01-07 12:59
PROVIDERS: Emergency Medicine; ADMIT Internal Medicine
DX: I95.9 Hypotension, unspecified (principal); R06.00 Dyspnea, unspecified; D50.9 Iron deficiency anemia, unspecified; F41.9 Anxiety disorder, unspecified; F32.A Depression, unspecified; G89.29 Other chronic pain; M54.9 Dorsalgia, unspecified; M81.0 Age-related osteoporosis without current pathological fracture; E55.9 Vitamin D deficiency, unspecified; Z88.5 Allergy status to narcotic agent; Z88.8 Allergy status to other drugs, medicaments and biological substances
CPT/HCPCS: 0241U; 36415; 71046; 80053; 81001; 83605; 83735; 84100; 84145; 84443; 84484; 85025; 85379; 85610; 85730; 87040; 87081; 87086; 87430; 93005; 93010; 94640; 94664; 96361; 96365; 96366; 96372; 99285-25; A9270; G0378; J0696; J1650; J7030

== ENCOUNTER 2023-03-24 13:03 | Emergency (ER) | payer MEDICARE, OTHER ==
[~2023-03-24] VITALS: Ht 147.3 cm; Wt 40.8 kg
[2023-03-24] MEDS ORDERED: FLUT.05NI (13:20)
[2023-03-24] MEDS ORDERED: HYDROCODONE-AC1 EA19 PO (13:21)
[2023-03-24] MEDS ORDERED: MEGESTROL400 MG/11 PO (13:22)
[2023-03-24] MEDS ORDERED: LATA.005SO BOTHEYES (13:23)
[2023-03-24] MEDS ORDERED: ALLEGRA ALLERG180 MG PO (13:24)
[2023-03-24] MEDS ORDERED: DULCOLAX400 MG/5 M PO (13:24)
[2023-03-24 15:30] VITALS: BP 102/68
== END 2023-03-24 15:52 | disposition home or self-care (01) ==
LOC: ER 13:03
DX: R19.7 Diarrhea, unspecified (principal); I95.9 Hypotension, unspecified; Z51.5 Encounter for palliative care; Z88.8 Allergy status to other drugs, medicaments and biological substances; Z88.5 Allergy status to narcotic agent; Z79.899 Other long term (current) drug therapy; I10 Essential (primary) hypertension; Z87.891 Personal history of nicotine dependence
CPT/HCPCS: 99284